=== PATIENT | male | born 1945 | race Caucasian/White ===

== ENCOUNTER → 2018-05-15 | Outpatient (CLI) | payer MEDICARE ==
[2018-05-15 11:25] LABS: HCT 42.4 % (39.0-53.0); HGB 14.6 gm/dL (13.0-17.5); MCH 33.3 pg (25.0-35.0); MCHC 34.4 g/dL (31.0-37.0); MCV 96.6 fL (80.0-100.0); Mean Platelet Volume 6.7; Platelet Count 223 k/uL (150-450); RBC 4.39 m/uL (4.30-5.90); RDW 12.8 % (11.5-15.5); WBC 7.8 k/uL (3.8-10.6)
[2018-05-15 11:38] LABS: ALT 37 U/L (21-72); AST 24 U/L (17-59); Alkaline Phosphatase 87 U/L (38-126); Anion Gap 9 mmol/L; Blood Urea Nitrogen 14 mg/dL (9-20); Calcium 9.4 mg/dL (8.4-10.2); Carbon Dioxide 26 mmol/L (22-30); Chloride 104 mmol/L (98-107); Cholesterol 107 mg/dL (<200); Glucose 191 mg/dL (74-99); HDL Cholesterol 35 mg/dL (40-60); LDL Cholesterol,Calculated 57 mg/dL (0-99); Potassium 4.7 mmol/L (3.5-5.1); Sodium 139 mmol/L (137-145); Total Bilirubin 0.7 mg/dL (0.2-1.3); Total Protein 6.6 g/dL (6.3-8.2); Triglycerides 76 mg/dL (<150)
[2018-05-15 11:55] LABS: T4, Free (Free Thyroxine) 0.97 ng/dL (0.78-2.19)
[2018-05-15 12:09] LABS: Prostate Specific Antigen 0.65 ng/mL (0.00-4.00)
[2018-05-15 17:01] LABS: Hemoglobin A1C 7.9 % (4.0-6.0)
== END | disposition home or self-care (01) ==
LOC: LABWHC1 10:24
PROVIDERS: ATTEND Family Medicine
DX: E11.9 Type 2 diabetes mellitus without complications (principal); I10 Essential (primary) hypertension
CPT/HCPCS: 36415; 80053; 80061; 83036; 84153; 84439; 84443; 85027

== ENCOUNTER → 2019-01-21 | Outpatient (CLI) | payer MEDICARE ==
--- NOTE | 2019-01-21 10:31 | XR ---
EXAMINATION TYPE: XR shoulder complete BILAT DATE OF EXAM: 01/21/2019 CLINICAL HISTORY: Bilateral shoulder pain TECHNIQUE: Three views of the bilateral shoulders were obtained. COMPARISON: None. FINDINGS: There is no acute fracture/dislocation evident in either shoulder. On the left there is mi ld acromio clavicular arthropathy with small marginal osteophytes. There is also mild glenohumeral ar thropathy with enthesophytes and minimal joint space narrowing. The left ribs appear grossly unremark able. No suspicious osseous lesion is seen on the left. On the right there is the appearance of a chr onic fracture deformity of the distal tip of the clavicle or clavicular reabsorption from arthropathy . There is moderate acromioclavicular arthropathy and moderate right glenohumeral arthropathy with ann bchondral cyst formation, marginal osteophytes, and joint space narrowing. No suspicious osseous lesi on. Visualized right ribs appear intact. IMPRESSION: 1. No acute fracture or dislocation in either shoulder. 2. Moderate right acromioclavicular and glenohumeral arthropathy and mild left acromioclavicular and glenohumeral arthropathy. There is also a mild chronic fracture deformity the distal right clavicular head or reabsorption from arthropathy.
--- NOTE | 2019-01-21 10:39 | XR ---
EXAMINATION TYPE: XR knee complete bilateral DATE OF EXAM: 01/21/2019 CLINICAL HISTORY: Bilateral knee pain TECHNIQUE: Three views of the bilateral knees were obtained. COMPARISON: None. FINDINGS: There is no acute fracture/dislocation evident in either knee. On the right there are mild tricompartmental osteophytes and well-corticated osteophyte of the superior patellar pole. Extensive atherosclerosis is seen of the popliteal artery and its branches. No suprapatellar joint effusion is evident. No suspicious osseous lesion. On the left there are also small tricompartmental osteophytes with very trace suprapatellar joint effusion suspected. Extensive atherosclerosis is also seen on th e left. No suspicious osseous lesion. IMPRESSION: 1. No acute fracture or dislocation in either knee. 2. Mild tricompartmental arthrosis bilaterally and extensive vascular calcifications. 3. Suspected trace left suprapatellar joint effusion.
== END | disposition home or self-care (01) ==
LOC: RADXRMAIN 09:46
PROVIDERS: ATTEND Family Medicine
DX: M19.011 Primary osteoarthritis, right shoulder (principal); M19.012 Primary osteoarthritis, left shoulder; M17.0 Bilateral primary osteoarthritis of knee

== ENCOUNTER → 2019-05-01 | Outpatient (CLI) | payer MEDICARE ==
--- NOTE | 2019-05-01 17:19 | MR ---
EXAMINATION TYPE: MR shoulder LT wo con DATE OF EXAM: 05/01/2019 COMPARISON: HISTORY: Lt shoulder pain x 2 yrs, injured while lifting TECHNIQUE: Multiplanar, multisequence imaging of the left shoulder is performed without contrast. FINDINGS: There is moderate sized shoulder joint effusion. Subscapularis tendon is intact. Biceps tendon is int act. There is fluid around the biceps tendon. There is large rotator cuff tear with retraction of the supraspinatus tendon. There is moderate spurr ing at the AC joint. There is severe subacromial joint space narrowing. Glenoid honey appear intact. There is no evidence of a fracture. The glenoid honey appear intact. IMPRESSION: Large rotator cuff tear with retraction of the supraspinatus tendon. 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 Subacromial impingement. Shoulder joint moderate-sized effusion.
== END | disposition home or self-care (01) ==
LOC: RADMRIMAIN 10:00
PROVIDERS: ATTEND Family Medicine
DX: M19.012 Primary osteoarthritis, left shoulder (principal); M75.122 Complete rotator cuff tear or rupture of left shoulder, not specified as traumatic

== ENCOUNTER → 2020-06-16 | Outpatient (CLI) | payer MEDICARE ==
[2020-06-16 11:20] LABS: Albumin 4.3 g/dL (3.80-4.90); Albumin/Globulin Ratio 2.15 (1.60-3.17); Anion Gap 8.2 mmol/L (4.00-12.00); Calcium 9.8 mg/dL (8.7-10.3); Carbon Dioxide 28.8 mmol/L (21.6-31.8); Non-African American GFR(CKD) 73.3 (60.0-200.0); Potassium 5.3 mmol/L (3.5-5.5); Total Bilirubin 0.5 mg/dL (0.3-1.2); Total Protein 6.3 g/dL (6.2-8.2)
== END | disposition home or self-care (01) ==
LOC: LABWHC1 07:04
PROVIDERS: ATTEND Internal Medicine Endocrinology, Diabetes & Metabolism
DX: E11.65 Type 2 diabetes mellitus with hyperglycemia (principal)
CPT/HCPCS: 36415; 80053; 84681

== ENCOUNTER → 2021-01-03 | Outpatient (CLI) | payer MEDICARE ==
[2021-01-04 01:38] LABS: Hemoglobin A1C 6.7 % (4.0-6.0)
[2021-01-04 04:00] LABS: African American GFR (CKD) 75.2 (60.0-200.0); Albumin 3.9 g/dL (3.80-4.90); Albumin/Globulin Ratio 2.17 (1.60-3.17); Anion Gap 10.1 mmol/L (4.00-12.00); BUN/Creat Ratio 27.27 Ratio (12.00-20.00); Carbon Dioxide 23.9 mmol/L (21.6-31.8); Chol/HDL Ratio 2.79; Globulin 1.8 g/dL (1.6-3.3); Non-African American GFR(CKD) 64.9 (60.0-200.0); Potassium 4.3 mmol/L (3.5-5.5); Total Bilirubin 0.5 mg/dL (0.2-1.2); Total Protein 5.7 g/dL (6.2-8.2)
[2021-01-04 12:57] LABS: Urine Creatinine 150.9 mg/dL
== END | disposition home or self-care (01) ==
LOC: LABWHC1 06:55
PROVIDERS: ATTEND Internal Medicine Endocrinology, Diabetes & Metabolism
DX: E11.65 Type 2 diabetes mellitus with hyperglycemia (principal)
CPT/HCPCS: 36415; 80053; 80061; 82043; 82570; 83036; 84443

== ENCOUNTER → 2021-04-16 | Outpatient (CLI) | payer MEDICARE ==
[2021-04-16 16:31] LABS: Hemoglobin A1C 6.4 % (4.0-6.0)
[2021-04-16 19:16] LABS: African American GFR (CKD) 84.4 (60.0-200.0); Albumin 4.1 g/dL (3.80-4.90); Albumin/Globulin Ratio 2.05 (1.60-3.17); Anion Gap 7.1 mmol/L (4.00-12.00); Calcium 9.3 mg/dL (8.7-10.3); Carbon Dioxide 24.9 mmol/L (21.6-31.8); Chol/HDL Ratio 2.3; LDL Cholesterol,Calculated 54.6 mg/dL (0.0-131.0); Non-African American GFR(CKD) 72.8 (60.0-200.0); Potassium 4.5 mmol/L (3.5-5.5); Total Bilirubin 0.6 mg/dL (0.3-1.2); Total Protein 6.1 g/dL (6.2-8.2); Uric Acid 5.6 mg/dL (3.7-8.7); VLDL Calculation 10.4 mg/dL (5.00-40.00)
[2021-04-16 21:14] LABS: Urine Creatinine 120.5 mg/dL
== END | disposition home or self-care (01) ==
LOC: LABWHC1 07:11
PROVIDERS: ATTEND Internal Medicine Endocrinology, Diabetes & Metabolism
DX: E11.65 Type 2 diabetes mellitus with hyperglycemia (principal); M10.9 Gout, unspecified
CPT/HCPCS: 36415; 80053; 80061; 82043; 82570; 83036; 84443; 84550

== ENCOUNTER → 2022-01-09 | Outpatient (CLI) | payer MEDICARE ==
[2022-01-09 10:52] LABS: ALT 33 U/L (10-49); AST 21 U/L (14-35); African American GFR (CKD) 95.1 (60.0-200.0); Albumin 4.2 g/dL (3.8-4.9); Albumin/Globulin Ratio 1.75 (1.60-3.17); Alkaline Phosphatase 79 U/L (41-126); BUN/Creat Ratio 25.78 Ratio (12.00-20.00); Blood Urea Nitrogen 23.2 mg/dL (9.0-27.0); Calcium 9.5 mg/dL (8.7-10.3); Carbon Dioxide 24.5 mmol/L (20.0-27.5); Chloride 105 mmol/L (96-109); Chol/HDL Ratio 2.22 Ratio; Globulin 2.4 g/dL (1.6-3.3); Glucose 162 mg/dL (70-110); LDL Cholesterol,Calculated 50.7 mg/dL (0.0-131.0); Non-African American GFR(CKD) 82.1 (60.0-200.0); Potassium 4.3 mmol/L (3.5-5.5); Sodium 139 mmol/L (135-145); Total Protein 6.6 g/dL (6.2-8.2)
== END | disposition home or self-care (01) ==
LOC: LABWHC1 07:00
PROVIDERS: ATTEND Internal Medicine Endocrinology, Diabetes & Metabolism
DX: E11.65 Type 2 diabetes mellitus with hyperglycemia (principal)
CPT/HCPCS: 36415; 80053; 80061; 82043; 82570; 83036; 84443

== ENCOUNTER 2022-02-21 10:56 | Emergency (ER) | payer MEDICARE ==
[2022-02-21 11:17] VITALS: BP 133/57; PULSE 68; RESP 18; TEMP 97.9
[2022-02-21] MEDS ORDERED: DIPH,PERTUS(ACELL)TETVAC-LF 0.5 ML VIAL IM ONE (11:23)
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
--- NOTE | 2022-02-21 13:08 | XR ---
EXAMINATION TYPE: XR elbow complete RT DATE OF EXAM: 02/21/2022 COMPARISON: NONE INDICATION: Fall, pain and swelling TECHNIQUE: 3 views off the right elbow FINDINGS: Linear lucency superimposed on the sublime tubercle of the ulna. This could be related to degenerativ e changes however a subtle nondisplaced fracture at that location cannot be excluded. Osteophytosis of the radial head, olecranon and coronoid process with medial and lateral humeral epic ondyle enthesophytes. Elongated bone fragment measuring 7 mm is seen along the medial humeral condyle, possibly representin g sequela of avulsion fracture or related to degenerative changes. No definite acute fracture line identified otherwise. No sizable joint effusion. IMPRESSION: As above.
== END 2022-02-21 13:33 | disposition home or self-care (01) ==
LOC: EC 10:56
DX: S51.011A Laceration without foreign body of right elbow, initial encounter (principal); E11.9 Type 2 diabetes mellitus without complications; I10 Essential (primary) hypertension; E78.5 Hyperlipidemia, unspecified; Z79.899 Other long term (current) drug therapy; Z79.84 Long term (current) use of oral hypoglycemic drugs; V87.8XXA Person injured in other specified noncollision transport accidents involving motor vehicle (traffic), initial encounter
CPT/HCPCS: 90471; 90715; 99283

== ENCOUNTER 2022-06-07 21:38 | Emergency (ER) | payer MEDICARE ==
--- NOTE | 2022-06-07 23:28 | CT ---
EXAMINATION TYPE: CT brain evangelina wiley con DATE OF EXAM: 06/07/2022 COMPARISON: None HISTORY: fall CT DLP: 1302.8 mGycm Automated exposure control for dose reduction was used. There is cerebral mild cortical atrophy. There is no mass effect or midline shift. No sign of intracr anial hemorrhage. The calvarium is intact. The skull base is intact. There is normal aeration of the mastoid sinuses. The cervical vertebra have normal alignment. There is mild disc space narrowing at C5-6 and C6-7 with spurring of the endplates. The posterior elements are intact. No compression fracture. Facet joints appear intact. Prevertebral soft tissues are intact. IMPRESSION: Spondylotic changes in the lower cervical spine. No fracture. Mild cerebral atrophy. No acute intracranial abnormality.
--- NOTE | 2022-06-07 23:35 | CT ---
EXAMINATION TYPE: CT facial bones wo con DATE OF EXAM: 06/07/2022 COMPARISON: None HISTORY: fall CT DLP: 1302.8 mGycm Automated exposure control for dose reduction was used. Images obtained from the bottom of the mandible to the vertex of the brain with no contrast. The mandibular ring is intact. The temporomandibular joints are intact. Zygomatic arches appear nino l. Nasal bone is intact There is normal aeration of the paranasal sinuses. Maxilla is intact. No evidence of orbital blowout fracture. Orbital margins are intact. No retro-orbital mass. No sign of a foreign body. IMPRESSION: Negative CT scan of the facial bones. No fracture seen.
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
[2022-06-08 00:18] VITALS: BP 160/70; PULSE 62; RESP 18; TEMP 98
== END 2022-06-08 00:17 | disposition home or self-care (01) ==
LOC: EC 21:38
DX: T14.8XXA Other injury of unspecified body region, initial encounter (principal); E11.9 Type 2 diabetes mellitus without complications; E78.5 Hyperlipidemia, unspecified; I10 Essential (primary) hypertension; I25.2 Old myocardial infarction; Z79.899 Other long term (current) drug therapy; W01.0XXA Fall on same level from slipping, tripping and stumbling without subsequent striking against object, initial encounter
CPT/HCPCS: 70450; 70486; 72125; 99284

== ENCOUNTER → 2023-01-28 | Outpatient (CLI) | payer MEDICARE ==
[2023-01-28 11:14] LABS: BUN/Creat Ratio 23.67 Ratio; Blood Urea Nitrogen 21.3 mg/dL; Chloride 104 mmol/L; Chol/HDL Ratio 2.55 Ratio; Glucose 183 mg/dL; LDL Cholesterol,Calculated 75.3 mg/dL; Potassium 4.3 mmol/L; Sodium 140 mmol/L; VLDL Calculation 11.66 mg/dL
[2023-01-28 11:15] LABS: ALT 40 U/L; AST 26 U/L; Albumin 4.3 d/dL; Albumin/Globulin Ratio 2.05 Ratio; Alkaline Phosphatase 81 U/L; Calcium 9.9 mg/dL; Carbon Dioxide 24.9 mmol/L; Globulin 2.1 d/dL; Total Bilirubin 0.6 mg/dL; Total Protein 6.4 d/dL
== END | disposition home or self-care (01) ==
LOC: LABWHC1 06:40
PROVIDERS: ATTEND Internal Medicine Endocrinology, Diabetes & Metabolism
DX: E11.65 Type 2 diabetes mellitus with hyperglycemia (principal)
CPT/HCPCS: 36415; 80053; 80061; 82043; 82570; 83036; 84443

== ENCOUNTER 2024-05-04 12:52 | Inpatient (IN) | payer MEDICARE ==
--- NOTE | 2024-05-04 13:00 | ED ---
Fall HPI - General Source: patient, family, RN notes reviewed Mode of arrival: wheelchair Limitations: no limitations <Vanessa Martinez - Last Filed: 05/04/24 12:59> - General Source: patient, family, RN notes reviewed Limitations: no limitations <Klaus Cartagena - Last Filed: 05/04/24 16:58> - General Stated Complaint: Fall on thinner-facial injury Time Seen by Provider: 05/04/24 12:59 - History of Present Illness Initial Comments: Quick note: 78-year-old male presented to ER with a chief complaint of fall. Patient states he was on a ladder approximately 2 feet high when he lost his balance falling landing on his right side. He does report pain in his head denies loss of consciousness. Does take Xarelto. He does report a laceration to left eyebrow. Reports pain to right ribs, right elbow and right valentine. (Vanessa Martinez) Patient is a 78-year-old male presenting to the emergency department after a fall. Patient was on a ladder about 2 feet high. Patient did land on his right side. Patient believes the ladder struck his head and caused a laceration to the left eyebrow. No neck or back pain. No dyspnea. Patient has discomfort right ribs. Patient denies abdominal pain. Patient did sustain a skin tear to right elbow and right leg. Tetanus immunization is up-to-date. (Klaus Cartagena) - Related Data Home Medications Medication Instructions Recorded Confirmed Atorvastatin Calcium [Lipitor] 80 mg PO HS 02/21/22 05/04/24 Indomethacin [Indocin] 50 mg PO TID PRN 02/21/22 05/04/24 Losartan Potassium 50 mg PO DAILY 02/21/22 05/04/24 Niacin [Niacin ER] 500 mg PO DAILY 02/21/22 05/04/24 Tamsulosin HCl [Flomax] 0.4 mg PO DAILY 02/21/22 05/04/24 allopurinoL [Zyloprim] 100 mg PO BID 02/21/22 05/04/24 sitaGLIPtin PHOS/metFORMIN HCL 1 tab PO DAILY 02/21/22 05/04/24 [Janumet 50-1,000 mg Tablet] Amiodarone [Cordarone] 200 mg PO DAILY 05/04/24 05/04/24 Aspirin EC [Ecotrin Low Dose] 81 mg PO HS 05/04/24 05/04/24 HYDROcodone/APAP 5-325MG [[place] 1 tab PO QID PRN 05/04/24 05/04/24 5-325] Metoprolol Tartrate [Lopressor] 50 mg PO BID 05/04/24 05/04/24 Rivaroxaban [Xarelto] 20 mg PO DAILY 05/04/24 05/04/24 Allergies Allergy/AdvReac Type Severity Reaction Status Date / Time No Known Allergies Allergy Verified 05/04/24 16:27 Review of Systems ROS Other: All systems not noted in ROS Statement are negative. <Vanesas Martinez - Last Filed: 05/04/24 12:59> ROS Other: All systems not noted in ROS Statement are negative. Constitutional: Denies: fever Eyes: Denies: eye pain ENT: Denies: ear pain Respiratory: Denies: cough, dyspnea Cardiovascular: Reports: as per HPI Musculoskeletal: Denies: back pain <Klaus Cartagena - Last Filed: 05/04/24 16:58> ROS Statement: Those systems with pertinent positive or pertinent negative responses have been documented in the HPI. Past Medical History Past Medical History: Diabetes Mellitus, Hyperlipidemia, Hypertension, Myocardial Infarction (OR) History of Any Multi-Drug Resistant Organisms: None Reported Past Surgical History: Heart Catheterization With Stent Past Psychological History: No Psychological Hx Reported Smoking Status: Never smoker Past Alcohol Use History: None Reported Past Drug Use History: None Reported <Vanessa Martinez - Last Filed: 05/04/24 12:59> General Exam <Vanessa Martinez - Last Filed: 05/04/24 12:59> Limitations: no limitations General appearance: alert, in no apparent distress Head exam: Present: other (Left eyebrow laceration) Eye exam: Present: normal appearance, PERRL, EOMI Neck exam: Present: normal inspection. Absent: tenderness Respiratory exam: Present: normal lung sounds bilaterally, chest wall tenderness (Right lower rib region). Absent: decreased breath sounds Cardiovascular Exam: Present: regular rate, normal rhythm, normal heart sounds GI/Abdominal exam: Present: soft, tenderness (Mild right upper abdomen). Absent: distended Extremities exam: Present: normal inspection, full ROM. Absent: tenderness Neurological exam: Present: alert, oriented X3, CN II-XII intact. Absent: motor sensory deficit Expanded Neurological exam: Present: protecting the airway Patient oriented to: Present: person, place, time Speech: Present: fluid speech Cranial nerves: EOM's Intact: Normal Sensory exam: Upper Extremity Light Touch: Normal, Lower Extremity Light Touch: Normal Motor strength exam: RUE: 5, LUE: 5, RLE: 5, LLE: 5 Eye Response: (4) open spontaneously Motor Response: (6) obeys commands Verbal Response: (5) oriented Psychiatric exam: Present: normal affect, normal mood Skin exam: Present: other (Eyebrow laceration. Skin tears right elbow and right anterior tibial region) <Klaus Cartagena - Last Filed: 05/04/24 16:58> - General Exam Comments Initial Comments: Visual Physical Exam Vital signs reviewed General: Well-appearing, nontoxic, no acute distress. Resting tremor Head: Normocephalic, atraumatic Eyes: PERRLA, EOMI, laceration to left eyebrow ENT: Airway patent Chest: Nonlabored breathing Skin: No visual rash, normal skin tone Neuro: Alert and oriented 3 Musculoskeletal: No gross abnormalities (Vanessa Martinez) Course Vital Signs 05/04/24 05/04/24 05/04/24 12:58 13:10 14:13 Temperature 97.6 F Pulse Rate 68 63 54 L Pulse Rate [ Supine] Respiratory 18 18 16 Rate Blood Pressure 92/55 116/60 90/46 Blood Pressure [Left Arm] O2 Sat by Pulse 98 93 L 94 L Oximetry 05/04/24 05/04/24 15:05 16:14 Temperature Pulse Rate 52 L Pulse Rate [ 49 L Supine] Respiratory 16 18 Rate Blood Pressure 149/59 Blood Pressure 109/50 [Left Arm] O2 Sat by Pulse 94 L 100 Oximetry Procedures - Laceration Laceration #1 Consent Obtained: verbal consent Indication: laceration Site: face Size (cm): 3 Description: linear Depth: simple, single layer Pre-repair: irrigated extensively Type of Sutures: other (Closed with tissue adhesive) Complications: bleeding Patient Tolerated Procedure: well <Klaus Cartagena - Last Filed: 05/04/24 16:58> Medical Decision Making <Vanessa Martinez - Last Filed: 05/04/24 12:59> - Lab Data Result diagrams: 05/04/24 13:40 05/04/24 13:40 <CartagenaKlaus - Last Filed: 05/04/24 16:58> - Medical Decision Making I performed the quick note portion of this chart. Electronically signed by Vanessa Martinez PA-C (Vanessa Martinez) EKG interpreted by myself shows sinus rhythm with a rate of 60. VA 182. QRS 101. QT 443. QTc 444. Normal axis. Q wave in V1. Q wave in lead III. No acute ST change Was pt. sent in by a medical professional or institution (RAGINI Martin, DIRECTOR [employer], urgent care, hospital, or halfway...) When possible be specific @ -No Did you speak to anyone other than the patient for history (EMS, parent, family, police, friend...)? What history was obtained from this source @ -Family is present and helps provide history of patient and Xarelto Did you review nursing and triage notes (agree or disagree)? Why? @ -I reviewed and agree with nursing and triage notes Were old charts reviewed (outside hosp., previous admission, EMS record, old EKG, old radiological studies, urgent care reports/EKG's, halfway records)? Report findings @ -No old charts were reviewed Differential Diagnosis (chest pain, altered mental status, abdominal pain women, abdominal pain men, vaginal bleeding, weakness, fever, dyspnea, syncope, headache, dizziness, GI bleed, back pain, seizure, CVA, palpatations, mental health, musculoskeletal)? @ -Differential Musculoskeletal Muscular strain, contusion, ligament sprain, fracture, arthritis, septic arthritis, bursitis, cellulitis, muscle spasm, nerve compression, DVT, arterial occlusion, herpes zoster, electrolyte abnormality, tumor.... This is not meant to be in all inclusive list EKG interpreted by me (3pts min.). @ -As above X-rays interpreted by me (1pt min.). @ -Chest x-ray with questionable rib fracture. Pelvis x-ray shows no acute process CT interpreted by me (1pt min.). @ -CT scan brain and cervical spine without acute abnormality. CTA of chest with rib fractures on the right, possible hemothorax U/S interpreted by me (1pt. min.). @ -None done What testing was considered but not performed or refused? (CT, X-rays, U/S, labs)? Why? @ -None What meds were considered but not given or refused? Why? @ -None Did you discuss the management of the patient with other professionals (professionals i.e. , PA, [employer], lab, RT, psych nurse, delinquency prevention social worker, head waiter, teacher, [place] [employer] police officer, case resolution specialist)? Give summary @ -Case discussed with trauma surgeon Dr. Bansal who will admit covering trauma call Was smoking cessation discussed for >3mins.? @ -No Was critical care preformed (if so, how long)? @ -32 minutes critical care time Were there social determinants of health that impacted care today? How? (Homelessness, low income, unemployed, alcoholism, drug addiction, transportation, low edu. Level, literacy, decrease access to med. care, [facility], rehab)? @ -No Was there de-escalation of care discussed even if they declined (Discuss DNR or withdrawal of care, Hospice)? DNR status @ -No What co-morbidities impacted this encounter? (DM, HTN, Smoking, COPD, CAD, Cancer, CVA, ARF, Chemo, Hep., AIDS, mental health diagnosis, sleep apnea, morbid obesity)? @ -None Was patient admitted / discharged? Hospital course, mention meds given and route, prescriptions, significant lab abnormalities, going to OR and other pertinent info. @ -Patient presents with fall with right-sided rib pain. Patient has multiple rib fractures. Patient will be admitted, admission orders written. Undiagnosed new problem with uncertain prognosis? @ -No Drug Therapy requiring intensive monitoring for toxicity (Heparin, Nitro, Insulin, Cardizem)? @ -No Were any procedures done? @ -No Diagnosis/symptom? @ -Fall, right-sided rib fractures with hemothorax, eyebrow laceration Acute, or Chronic, or Acute on Chronic? @ -Acute, acute, acute Uncomplicated (without systemic symptoms) or Complicated (systemic symptoms)? @ -Default Side effects of treatment? @ -No Exacerbation, Progression, or Severe Exacerbation? @ -No Poses a threat to life or bodily function? How? (Chest pain, USA, OR, pneumonia, PE, COPD, DKA, ARF, appy, cholecystitis, CVA, Diverticulitis, Homicidal, Suicidal, threat to staff... and all critical care pts) @ -Threat to pulmonary function (Klaus Cartagena) - Lab Data Lab Results 05/04/24 05/04/24 05/04/24 Range/Units 13:35 13:40 13:40 WBC 7.0 (3.8-10.6) k/uL RBC 3.64 L (4.30-5.90) m/uL Hgb 12.1 L (13.0-17.5) gm/dL Hct 37.8 L (39.0-53.0) % MCV 103.9 H (80.0-100.0) fL MCH 33.3 (25.0-35.0) pg MCHC 32.0 (31.0-37.0) g/dL RDW 12.6 (11.5-15.5) % Plt Count 248 (150-450) k/uL MPV 7.5 Neutrophils % 72 % Lymphocytes % 17 % Monocytes % 7 % Eosinophils % 2 % Basophils % 1 % Neutrophils # 5.1 (1.3-7.7) k/uL Lymphocytes # 1.2 (1.0-4.8) k/uL Monocytes # 0.5 (0-1.0) k/uL Eosinophils # 0.2 (0-0.7) k/uL Basophils # 0.0 (0-0.2) k/uL Macrocytosis Slight PT 15.1 H (10.0-12.5) sec INR 1.5 H (<1.2) APTT 28.7 (22.0-30.0) sec Sodium (137-145) mmol/L Potassium (3.5-5.1) mmol/L Chloride (98-107) mmol/L Carbon Dioxide (22-30) mmol/L Anion Gap mmol/L BUN (9-20) mg/dL Creatinine (0.66-1.25) mg/dL Est GFR (CKD-EPI)AfAm (>60 ml/min/1.73 sqM) Est GFR (CKD-EPI)NonAf (>60 ml/min/1.73 sqM) Glucose (74-99) mg/dL Calcium (8.4-10.2) mg/dL Total Bilirubin (0.2-1.3) mg/dL AST (17-59) U/L ALT (4-49) U/L Alkaline Phosphatase (38-126) U/L Total Protein (6.3-8.2) g/dL Albumin (3.5-5.0) g/dL Blood Type O Positive Blood Type Confirm Blood Type Recheck No Previous Record Bld Type Recheck Status CABO Indicated Antibody Screen NEGATIVE Spec Expiration Date 05/07/2024 - 233405/04/24 05/04/24 Range/Units 13:40 13:43 WBC (3.8-10.6) k/uL RBC (4.30-5.90) m/uL Hgb (13.0-17.5) gm/dL Hct (39.0-53.0) % MCV (80.0-100.0) fL MCH (25.0-35.0) pg MCHC (31.0-37.0) g/dL RDW (11.5-15.5) % Plt Count (150-450) k/uL MPV Neutrophils % % Lymphocytes % % Monocytes % % Eosinophils % % Basophils % % Neutrophils # (1.3-7.7) k/uL Lymphocytes # (1.0-4.8) k/uL Monocytes # (0-1.0) k/uL Eosinophils # (0-0.7) k/uL Basophils # (0-0.2) k/uL Macrocytosis PT (10.0-12.5) sec INR (<1.2) APTT (22.0-30.0) sec Sodium 135 L (137-145) mmol/L Potassium 4.5 (3.5-5.1) mmol/L Chloride 107 (98-107) mmol/L Carbon Dioxide 21 L (22-30) mmol/L Anion Gap 7 mmol/L BUN 27 H (9-20) mg/dL Creatinine 1.31 H (0.66-1.25) mg/dL Est GFR (CKD-EPI)AfAm 60 (>60 ml/min/1.73 sqM) Est GFR (CKD-EPI)NonAf 52 (>60 ml/min/1.73 sqM) Glucose 234 H (74-99) mg/dL Calcium 9.5 (8.4-10.2) mg/dL Total Bilirubin 0.7 (0.2-1.3) mg/dL AST 171 H (17-59) U/L ALT 165 H (4-49) U/L Alkaline Phosphatase 130 H (38-126) U/L Total Protein 6.1 L (6.3-8.2) g/dL Albumin 3.7 (3.5-5.0) g/dL Blood Type Blood Type Confirm O Positive Blood Type Recheck Bld Type Recheck Status Antibody Screen Spec Expiration Date Disposition <Vanessa Martinez - Last Filed: 05/04/24 12:59> Is patient prescribed a controlled substance at d/c from ED?: No Time of Disposition: 16:33 <Klaus Cartagena - Last Filed: 05/04/24 16:58> Clinical Impression: Multiple rib fractures, Hemothorax, Eyebrow laceration Disposition: ADMITTED IP TO THIS HOSP Referrals: Enrique Olsen DO [Primary Care Provider] - 1-2 days
[2024-05-04] MEDS: HYDROmorphone 0.5 MG/0.5 ML SYRINGE IVP STA (13:41)
[2024-05-04] MEDS: TOPICAL SKIN ADHESIVE 1 EACH AMP TOPICAL ONE (13:41)
[2024-05-04 13:53] LABS: Basophils % (A) 1 %; Eosinophils # (A) 0.2 k/uL (0-0.7); Eosinophils % (A) 2 %; HCT 37.8 % (39.0-53.0); HGB 12.1 gm/dL (13.0-17.5); Lymphocytes # (A) 1.2 k/uL (1.0-4.8); Lymphocytes % (A) 17 %; MCH 33.3 pg (25.0-35.0); MCV 103.9 fL (80.0-100.0); Macrocytosis Slight; Mean Platelet Volume 7.5; Monocytes # (A) 0.5 k/uL (0-1.0); Monocytes % (A) 7 %; Neutrophils # (A) 5.1 k/uL (1.3-7.7); Neutrophils % (A) 72 %; Platelet Count 248 k/uL (150-450); RBC 3.64 m/uL (4.30-5.90); RDW 12.6 % (11.5-15.5)
--- NOTE | 2024-05-04 14:02 | CT ---
EXAMINATION TYPE: CT brain cspine wo con CT DLP: 1518 mGycm, Automated exposure control for dose reduction was used. DATE OF EXAM: 05/04/2024 1:49 PM COMPARISON: None. CLINICAL INDICATION: Male, 78 years old with history of fall with head injury on thinners; fall TECHNIQUE: Brain: Multiple axial CT images of the brain were obtained without IV contrast. Cspine: Axial CT images from the skull base to the inferior aspect of T2 we obtained without intraven ous contrast. Coronal and sagittal reformatted images were also reviewed. . FINDINGS: Brain: Extra-axial spaces: No abnormal extra-axial fluid collections. Ventricular system: Within normal limits Cerebral parenchyma: No acute intraparenchymal hemorrhage or mass effect. The sarah-white junction is well differentiated. Cerebellum: Unremarkable. Mass effect: No evidence of midline shift. Intracranial vasculature: Atherosclerotic calcifications of the intracranial vessels. Soft tissues: Normal. Calvarium/osseous structures: No depressed skull fracture. Paranasal sinuses and mastoid air cells: Clear. Visualized orbits: Orbital contents are intact. Cervical spine: Fracture: None. Osseous structures: Multilevel degenerative disc disease changes with endplate spurring and disc oste ophyte complex's. Vertebral alignment: Within normal limits. Spinal canal/Neural Foramina: No evidence of significant spinal canal narrowing. No evidence for sign ificant neural foraminal stenosis. Neck soft tissues: Prevertebral soft tissues are within normal limits. Other: The airway is patent. The lung apices are clear. IMPRESSION: 1. No acute intracranial process. 2. No evidence of cervical spine fracture. 3. Moderate multilevel degenerative disc disease.
--- NOTE | 2024-05-04 14:03 | XR ---
EXAMINATION TYPE: XR chest 1V portable DATE OF EXAM: 05/04/2024 1:31 PM CLINICAL INDICATION: Male, 78 years old with history of trauma; COMPARISON: None TECHNIQUE: XR chest 1V portable Frontal view of the chest. FINDINGS: Lungs/Pleura: There is no evidence of pleural effusion, focal consolidation, or pneumothorax. Pulmonary vascularity: Unremarkable. Heart/mediastinum: Cardiomediastinal silhouette is unremarkable. Musculoskeletal: No acute osseous pathology. Other findings: None IMPRESSION: Low lung volumes with a generalized hazy appearance which could represent atelectasis versus pulmonar y edema correlate with serum BNP.
--- NOTE | 2024-05-04 14:04 | XR ---
EXAMINATION TYPE: XR pelvis AP view DATE OF EXAM: 05/04/2024 1:31 PM CLINICAL INDICATION: Male, 78 years old with history of Trauma; COMPARISON: None TECHNIQUE: XR pelvis AP view, examined in a single projection. FINDINGS: There is no evidence of fracture or dislocation. There is no soft tissue abnormality. No a bnormal calcifications are present. The spine appears intact. The hips appear intact. Osteophyte form ation of the superior acetabulum bilaterally with mild joint space narrowing. IMPRESSION: No acute osseous pathology.
[2024-05-04 14:12] LABS: INR 1.5 (<1.2); Partial Thromboplastin Time 28.7 sec (22.0-30.0); Prothrombin Time 15.1 sec (10.0-12.5)
[2024-05-04 15:23] LABS: ALT 165 U/L (4-49); AST 171 U/L (17-59); African American GFR (CKD) 60 (>60 ml/min/1.73 sqM); Albumin 3.7 g/dL (3.5-5.0); Alkaline Phosphatase 130 U/L (38-126); Anion Gap 7 mmol/L; Blood Urea Nitrogen 27 mg/dL (9-20); Calcium 9.5 mg/dL (8.4-10.2); Carbon Dioxide 21 mmol/L (22-30); Chloride 107 mmol/L (98-107); Glucose 234 mg/dL (74-99); Non-African American GFR(CKD) 52 (>60 ml/min/1.73 sqM); Potassium 4.5 mmol/L (3.5-5.1); Sodium 135 mmol/L (137-145); Total Bilirubin 0.7 mg/dL (0.2-1.3); Total Protein 6.1 g/dL (6.3-8.2)
--- NOTE | 2024-05-04 16:28 | CT ---
EXAMINATION TYPE: CT ChestAbdPelvis w con CT DLP: 1102.2 mGycm, Automated exposure control for dose reduction was used. DATE OF EXAM: 05/04/2024 4:11 PM COMPARISON: None. CLINICAL INDICATION: Male, 78 years old with history of trauma; [facility], fell off 2 foot ladder chest elle n Technique: CT ChestAbdPelvis w con; Multiple axial images were obtained. Two-dimensional coronal and sagittal reconstructions were obtained. Contrast used:100 mL of Isovue 300 with IV Contrast, Oral contrast used: without Oral Contrast Findings: CHEST: LUNGS/ PLEURA: High density right pleural effusion likely representing blood is in setting of rib fra ctures.e AIRWAY: Patent and unremarkable. HEART: Cardiomegaly is demonstrated.Atherosclerosis of the arterial vasculature. Moderate aortic valv e calcifications are present. MEDIASTINUM: No gross evidence of adenopathy. VASCULATURE: No aortic aneurysm. MUSCULOSKELETAL: Multiple right-sided rib fractures including right rib 3, 4, 5, 6, 7 with cortical b uckling of rib 8 9 also present. SOFT TISSUES/LYMPH NODES: Unremarkable. LOWER NECK: No significant findings. ABDOMEN: ABDOMEN LIVER: Unremarkable GALLBLADDER AND BILE DUCTS: Unremarkable. PANCREAS: Lesions are seen in the pancreatic parenchyma including the pancreatic uncinate process alex suring 15 mm and the pancreatic head measuring 16 mm. SPLEEN: Unremarkable. ADRENAL GLANDS: Unremarkable. KIDNEYS AND URETERS: No evidence of hydronephrosis or renal calculus. The ureters are unremarkable. Left simple appearing renal cysts. PELVIS BLADDER: Unremarkable REPRODUCTIVE: Unremarkable. ABDOMEN & PELVIS STOMACH AND BOWEL: No evidence of bowel obstruction. PERITONEUM/RETROPERITONEUM: No evidence of pneumoperitoneum or free fluid. VASCULATURE: No evidence of aortic aneurysm. MUSCULOSKELETAL: No Evidence for spine fracture. The bony pelvis appears intact. LYMPH NODES: No gross evidence for lymphadenopathy. SOFT TISSUE/ABDOMINAL WALL: Unremarkable IMPRESSION: 1. Acute right rib fractures with mild displacement of ribs 3 through 9 with suspected hemothorax ve rsus effusion on the right. 2. The spine appears intact without fracture. 3. Indeterminate pancreatic head and tail process lesions possibly representing cysts. Further evalu ation pancreatic MRI MRCP with IV contrast recommended. 4. Cardiomegaly with moderate to severe coronary artery atherosclerosis. 5. Moderate aortic valve calcifications.
[2024-05-04] MEDS ORDERED: MORPHINE SULFATE 2 MG/ML SYRINGE IVP PRN (16:58)
[2024-05-04] MEDS ORDERED: NALOXONE 0.4 MG/ML 1 ML VIAL IV PRN (16:58)
[2024-05-04] MEDS ORDERED: ONDANSETRON 4 MG/2 ML VIAL IVP PRN (16:58)
[2024-05-04] MEDS: HYDROcodone/APAP 5-325MG 1 EACH TAB PO PRN (18:22)
[2024-05-04] MEDS: LIDOCAINE 4% PATCH TOPICAL SCH (20:50)
[2024-05-04] MEDS: allopurinoL 100 MG TAB PO SCH (20:51)
[2024-05-04] MEDS: ATORVASTATIN 80 MG TAB PO SCH (20:51)
[2024-05-04] MEDS: METOPROLOL TARTRATE 50 MG TAB PO SCH (20:55)
[2024-05-04] MEDS: methocarbamoL 500 MG TAB PO SCH (22:08)
--- NOTE | 2024-05-05 03:58 | P.CNPUL ---
History of Present Illness Consult date: 05/05/24 Requesting physician: Klaus Cartagena Reason for consult: other (Traumatic fall, multiple displaced rib fractures) Chief complaint: Fall from ladder History of present illness: Patient is a 78-year-old white male with past medical history significant for diabetes mellitus, hyperlipidemia, hypertension, CAD with previous PCI/stenting, and atrial fibrillation anticoagulated on Xarelto. Patient presented to the ED yesterday after falling approximately 2 feet from ladder. He was changing a light fixture. Does report head trauma. There is a laceration to left eyebrow. Does take Xarelto on outpatient basis. CT of the brain and C-spine does not show any intracranial hemorrhage or mass effect. No C-spine fracture or subluxation. Also, reports some right-sided chest pain. CT of chest, abdomen, pelvis demonstrated acute right-sided rib fractures with mild displacement of ribs 3 through 9, and small right-sided effusion, possible hemothorax. No appreciable pneumothoraces. The fluid collection is small, doubt the patient would benefit from thoracotomy tube. Cardiothoracic consult was also placed. Patient is currently in the emergency department, room 2. He is on room air. SpO2 is 93%. No signs of respiratory distress. We will need to get him an incentive spirometer. Continues to have right-sided rib pain. No crepitus or subcutaneous emphysema. There is a lidocaine patch on. Patient also receiving as needed [place]'s. Reports that his pain is fairly well-managed at this time. Review of Systems Constitutional: Denies chills, Denies fever, Denies weight gain, Denies weight loss Eyes: denies blurred vision, denies decreased vision, denies diplopia, denies photophobia, denies loss of vision Ears, nose, mouth and throat: Denies epistaxis, Denies headache, Denies nose pain, Denies sinus pain Cardiovascular: Reports chest pain, Denies leg edema, Denies lightheadedness, Denies orthopnea, Denies palpitations, Denies paroxysmal nocturnal dyspnea, Denies syncope Respiratory: Reports pain on inspiration, Denies cough, Denies dyspnea, Denies hemoptysis Gastrointestinal: Denies abdominal pain Genitourinary: Denies dysuria, Denies hematuria, Denies urinary frequency Musculoskeletal: Denies leg numbness/tingling, Denies limitation of motion, Denies low back pain, Denies neck pain Musculoskeletal: right: elbow pain, hip pain, absent: ankle pain, ankle stiffness, ankle swelling, elbow stiffness, elbow swelling, hip stiffness, hip swelling, knee pain, knee stiffness, knee swelling, shoulder pain, shoulder stiffness, shoulder swelling, wrist pain, wrist stiffness, wrist swelling Integumentary: Denies rash Neurological: Reports head injury, Denies change in mentation, Denies change in speech, Denies confusion, Denies double vision, Denies gait dysfunction, Denies headaches, Denies lack of coordination, Denies memory loss, Denies seizures, Denies syncope, Denies weakness, Denies visual changes Psychiatric: Denies anxiety, Denies depression Past Medical History Past Medical History: Diabetes Mellitus, Hyperlipidemia, Hypertension, Myocardial Infarction ([place]) History of Any Multi-Drug Resistant Organisms: None Reported Past Surgical History: Heart Catheterization With Stent Past Psychological History: No Psychological Hx Reported Smoking Status: Never smoker Past Alcohol Use History: None Reported Past Drug Use History: None Reported Medications and Allergies Home Medications Medication Instructions Recorded Confirmed Type Atorvastatin Calcium [Lipitor] 80 mg PO HS 02/21/22 05/04/24 History Indomethacin [Indocin] 50 mg PO TID PRN 02/21/22 05/04/24 History Losartan Potassium 50 mg PO DAILY 02/21/22 05/04/24 History Niacin [Niacin ER] 500 mg PO DAILY 02/21/22 05/04/24 History Tamsulosin HCl [Flomax] 0.4 mg PO DAILY 02/21/22 05/04/24 History allopurinoL [Zyloprim] 100 mg PO BID 02/21/22 05/04/24 History sitaGLIPtin PHOS/metFORMIN HCL 1 tab PO DAILY 02/21/22 05/04/24 History [Janumet 50-1,000 mg Tablet] Amiodarone [Cordarone] 200 mg PO DAILY 05/04/24 05/04/24 History Aspirin EC [Ecotrin Low Dose] 81 mg PO HS 05/04/24 05/04/24 History HYDROcodone/APAP 5-325MG [[place] 1 tab PO QID PRN 05/04/24 05/04/24 History 5-325] Metoprolol Tartrate [Lopressor] 50 mg PO BID 05/04/24 05/04/24 History Rivaroxaban [Xarelto] 20 mg PO DAILY 05/04/24 05/04/24 History Allergies Allergy/AdvReac Type Severity Reaction Status Date / Time No Known Allergies Allergy Verified 05/04/24 16:27 Physical Exam Vitals: Vital Signs Temp Pulse Pulse Resp BP BP Pulse Ox 05/05/24 00:00 56 L 18 140/66 93 L 05/04/24 22:11 55 L 17 132/64 94 L 05/04/24 19:17 53 L 17 148/65 05/04/24 18:38 58 L 18 169/75 97 05/04/24 18:30 96 05/04/24 17:30 58 L 16 158/68 99 05/04/24 16:14 52 L 18 149/59 100 05/04/24 15:05 49 L 16 109/50 94 L 05/04/24 14:13 54 L 16 90/46 94 L 05/04/24 13:10 63 18 116/60 93 L 05/04/24 12:58 97.6 F 68 18 92/55 98 Intake and Output 05/04/24 05/04/24 05/05/24 14:59 22:59 06:59 Other: Weight 75.75 kg GENERAL EXAM: Alert, 78-year-old white male, appearing stated age, comfortable in no apparent distress. HEAD: Normocephalic and left frontal eyebrow trauma/ecchymosis/laceration/periorbital swelling EYES: Normal reaction of pupils, equal size. NOSE: Clear with pink turbinates. THROAT: No erythema or exudates. NECK: No masses, no JVD. CHEST: No chest wall deformity. Grimacing with palpation of right anterior thorax. No gross deformities or crepitus. No subcutaneous emphysema. LUNGS: Equal air entry with no crackles, wheeze, rhonchi or dullness. On room air. No conversational dyspnea or accessory muscle use.. CVS: S1 and S2 normal with no audible murmur, regular rhythm. No extra heart sounds ABDOMEN: No hepatosplenomegaly, active bowel sounds, no guarding or rigidity. SPINE: No scoliosis or deformity SKIN: Right valentine abrasion. Right elbow skin tear. CENTRAL NERVOUS SYSTEM: No focal deficits, tone is normal in all 4 extremities. EXTREMITIES: There is no peripheral edema, clubbing, or cyanosis. Peripheral pulses are intact. Results - Laboratory Findings CBC and BMP: 05/04/24 13:40 05/04/24 13:40 PT/INR, D-dimer PT 15.1 sec (10.0-12.5) H 05/04/24 13:40 INR 1.5 (<1.2) H 05/04/24 13:40 Abnormal lab findings: Abnormal Labs 05/04/24 05/04/24 05/04/24 13:40 13:40 13:40 RBC 3.64 L Hgb 12.1 L Hct 37.8 L MCV 103.9 H PT 15.1 H INR 1.5 H Sodium 135 L Carbon Dioxide 21 L BUN 27 H Creatinine 1.31 H Glucose 234 H AST 171 H ALT 165 H Alkaline Phosphatase 130 H Total Protein 6.1 L - Diagnostic Findings Chest x-ray: image reviewed CT scan - chest: image reviewed Assessment and Plan Assessment: Fall from ladder, sustaining right-sided mildly displaced rib fractures 3 through 9, with an associated small right-sided pleural effusion, possible tr aumatic hemothorax. No appreciable pneumothoraces. Head trauma, sustaining left eyebrow laceration Elevated livers enzymes, possibly secondary to trauma Acute kidney injury History of diabetes mellitus History of hyperlipidemia History of hypertension. History of coronary artery disease with previous PCI/stenting History of paroxysmal atrial fibrillation, chronically anticoagulated on Xarelto Indeterminate pancreas head and tail lesions, possible representing cyst per CT report. Can be further evaluated in an outpatient setting Plan: Patient's medications, labs, imaging reviewed Currently on room air, no acute respiratory distress. Encourage incentive spirometer and pulmonary toileting Pain is reportedly well-managed with current analgesic regimen including lidocaine patch and as needed [place]'s Patient's right-sided effusion and potential hemothorax is very small, generally requires no evacuation or thoracotomy tube. No appreciated pneumothoraces. Patient will be evaluated by the cardiothoracic team I have personally seen and examined the patient, performed the documentation and the assessment and plan as written. Number of minutes spent on the visit:20 Time with Patient: Greater than 30
--- NOTE | 2024-05-05 08:53 | P.GSHP ---
History of Present Illness H&P Date: 05/05/24 78-year-old male presents to the emergency department after fall from second rung of the ladder. He states he fell on his right side and denies loss of consciousness. He is found to have a contusion to the left orbit. He complained of right-sided chest pain. He does take Xarelto as a blood thinner. On workup, patient is found to have multiple mildly displaced rib fractures of the right side from ribs 3 through 9 with a small hemothorax. Contusion is noted at the left orbit. Patient denies any vision changes. Patient denies any abdominal pain. Patient is able to ambulate and does have an abrasion on the right upper extremity just proximal to the right elbow. He also was noted to have a right valentine abrasion. - Review of Systems All systems: negative Past Medical History Past Medical History: Diabetes Mellitus, Hyperlipidemia, Hypertension, Myocardial Infarction ([place]) History of Any Multi-Drug Resistant Organisms: None Reported Past Surgical History: Heart Catheterization With Stent Past Psychological History: No Psychological Hx Reported Smoking Status: Never smoker Past Alcohol Use History: None Reported Past Drug Use History: None Reported Medications and Allergies Home Medications Medication Instructions Recorded Confirmed Type Atorvastatin Calcium [Lipitor] 80 mg PO HS 02/21/22 05/04/24 History Indomethacin [Indocin] 50 mg PO TID PRN 02/21/22 05/04/24 History Losartan Potassium 50 mg PO DAILY 02/21/22 05/04/24 History Niacin [Niacin ER] 500 mg PO DAILY 02/21/22 05/04/24 History Tamsulosin HCl [Flomax] 0.4 mg PO DAILY 02/21/22 05/04/24 History allopurinoL [Zyloprim] 100 mg PO BID 02/21/22 05/04/24 History sitaGLIPtin PHOS/metFORMIN HCL 1 tab PO DAILY 02/21/22 05/04/24 History [Janumet 50-1,000 mg Tablet] Amiodarone [Cordarone] 200 mg PO DAILY 05/04/24 05/04/24 History Aspirin EC [Ecotrin Low Dose] 81 mg PO HS 05/04/24 05/04/24 History HYDROcodone/APAP 5-325MG [[place] 1 tab PO QID PRN 05/04/24 05/04/24 History 5-325] Metoprolol Tartrate [Lopressor] 50 mg PO BID 05/04/24 05/04/24 History Rivaroxaban [Xarelto] 20 mg PO DAILY 05/04/24 05/04/24 History Allergies Allergy/AdvReac Type Severity Reaction Status Date / Time No Known Allergies Allergy Verified 05/04/24 16:27 Surgical - Exam Osteopathic Statement: *. No significant issues noted on an osteopathic structural exam other than those noted in the History and Physical/Consult. Vital Signs Temp Pulse Resp BP Pulse Ox 97.6 F 68 18 92/55 98 05/04/24 12:58 05/04/24 12:58 05/04/24 12:58 05/04/24 12:58 05/04/24 12:58 - General well nourished, no distress - Eyes Ecchymosis and swelling to the left orbit - ENT no hearing loss - Neck trachea midline - Respiratory normal respiratory effort - Abdomen Soft, nontender, nondistended, no rebound, no guarding - Integumentary Abrasion to right upper extremity and right lower extremity - Psychiatric oriented to time, oriented to person, oriented to place Results - Labs 05/04/24 13:40 05/04/24 13:40 Abnormal Lab Results - Last 24 Hours (Table) 05/04/24 05/04/24 05/04/24 Range/Units 13:40 13:40 13:40 RBC 3.64 L (4.30-5.90) m/uL Hgb 12.1 L (13.0-17.5) gm/dL Hct 37.8 L (39.0-53.0) % MCV 103.9 H (80.0-100.0) fL PT 15.1 H (10.0-12.5) sec INR 1.5 H (<1.2) Sodium 135 L (137-145) mmol/L Carbon Dioxide 21 L (22-30) mmol/L BUN 27 H (9-20) mg/dL Creatinine 1.31 H (0.66-1.25) mg/dL Glucose 234 H (74-99) mg/dL AST 171 H (17-59) U/L ALT 165 H (4-49) U/L Alkaline Phosphatase 130 H (38-126) U/L Total Protein 6.1 L (6.3-8.2) g/dL Diabetes panel 05/04/24 Range/Units 13:40 Sodium 135 L (137-145) mmol/L Potassium 4.5 (3.5-5.1) mmol/L Chloride 107 (98-107) mmol/L Carbon Dioxide 21 L (22-30) mmol/L BUN 27 H (9-20) mg/dL Creatinine 1.31 H (0.66-1.25) mg/dL Glucose 234 H (74-99) mg/dL Calcium 9.5 (8.4-10.2) mg/dL AST 171 H (17-59) U/L ALT 165 H (4-49) U/L Alkaline Phosphatase 130 H (38-126) U/L Total Protein 6.1 L (6.3-8.2) g/dL Albumin 3.7 (3.5-5.0) g/dL Calcium panel 05/04/24 Range/Units 13:40 Calcium 9.5 (8.4-10.2) mg/dL Albumin 3.7 (3.5-5.0) g/dL Pituitary panel 05/04/24 Range/Units 13:40 Sodium 135 L (137-145) mmol/L Potassium 4.5 (3.5-5.1) mmol/L Chloride 107 (98-107) mmol/L Carbon Dioxide 21 L (22-30) mmol/L BUN 27 H (9-20) mg/dL Creatinine 1.31 H (0.66-1.25) mg/dL Glucose 234 H (74-99) mg/dL Calcium 9.5 (8.4-10.2) mg/dL Adrenal panel 05/04/24 Range/Units 13:40 Sodium 135 L (137-145) mmol/L Potassium 4.5 (3.5-5.1) mmol/L Chloride 107 (98-107) mmol/L Carbon Dioxide 21 L (22-30) mmol/L BUN 27 H (9-20) mg/dL Creatinine 1.31 H (0.66-1.25) mg/dL Glucose 234 H (74-99) mg/dL Calcium 9.5 (8.4-10.2) mg/dL Total Bilirubin 0.7 (0.2-1.3) mg/dL AST 171 H (17-59) U/L ALT 165 H (4-49) U/L Alkaline Phosphatase 130 H (38-126) U/L Total Protein 6.1 L (6.3-8.2) g/dL Albumin 3.7 (3.5-5.0) g/dL Assessment and Plan Plan: 78-year-old male with recent fall found to have multiple right-sided rib fractures with small hemothorax. No evidence of pneumothorax. Cardiothoracic surgery has been consulted as patient is on Xarelto with any concern of expanding hemothorax. Currently, patient is stable and oxygenating well. Recommended incentive spirometry. Pulmonary team is also following. Patient with significant analgesia with opiate, Robaxin, lidocaine patch. Due to significant ecchymosis and swelling around left orbit, CT of the maxillofacial was ordered. This is pending. Will have physical and Occupational Therapy evaluate the patient as well. Medical consult has been placed to the patient's primary care physician.
--- NOTE | 2024-05-05 09:09 | XR ---
EXAMINATION TYPE: XR chest 1V portable DATE OF EXAM: 05/05/2024 HISTORY: Shortness of breath. COMPARISON: 05/04/2024 TECHNIQUE: Single view of the chest is submitted. FINDINGS: Demonstrated are scattered senescent parenchymal change. There is no evidence for focal infiltrate. The heart is stable. Hilar and mediastinal structures are within normal limits. Degenerative changes are seen of the dorsal spine. IMPRESSION: 1. Chronic changes without evidence for acute pulmonary disease.
[2024-05-05] MEDS: LOSARTAN 50 MG TAB PO SCH (10:01)
[2024-05-05] MEDS: LINAGLIPTIN 5 MG TABLET PO SCH (10:01)
[2024-05-05] MEDS: TAMSULOSIN 0.4 MG CAP.ER.24H PO SCH (10:01)
[2024-05-05] MEDS: AMIODARONE 200 MG TAB PO SCH (10:01)
[2024-05-05] MEDS: metFORMIN 500 MG TAB PO SCH (10:01)
[2024-05-05] MEDS: NIACIN TR 500 MG CAPLET PO SCH (10:02)
--- NOTE | 2024-05-05 10:43 | CT ---
EXAMINATION TYPE: CT facial bones wo con DATE OF EXAM: 05/05/2024 COMPARISON: None HISTORY: Trauma, bruising over LT eye CT DLP: 583.[address] of the facial bones was performed in the axial and coronal planes. Bone and soft tissu e window settings are submitted. Soft tissue swelling about the left globe. I do not see evidence for displaced facial bone fracture or depressed facial bone fracture. The globes are intact. Paranasal sinuses are well-aerated. IMPRESSION: 1. No evidence for depressed or displaced facial bone fracture.
[2024-05-05 10:51] LABS: Basophils % (A) 0 %; Eosinophils # (A) 0.2 k/uL (0-0.7); Eosinophils % (A) 3 %; HCT 37.8 % (39.0-53.0); HGB 12.7 gm/dL (13.0-17.5); Lymphocytes # (A) 1.1 k/uL (1.0-4.8); Lymphocytes % (A) 13 %; MCH 34.7 pg (25.0-35.0); MCHC 33.5 g/dL (31.0-37.0); MCV 103.7 fL (80.0-100.0); Macrocytosis Slight; Mean Platelet Volume 7.6; Monocytes # (A) 0.5 k/uL (0-1.0); Monocytes % (A) 6 %; Neutrophils # (A) 6.6 k/uL (1.3-7.7); Neutrophils % (A) 77 %; Platelet Count 207 k/uL (150-450); RBC 3.65 m/uL (4.30-5.90); RDW 13.1 % (11.5-15.5); WBC 8.6 k/uL (3.8-10.6)
[2024-05-05] MEDS ORDERED: polyethylene glycoL 3350 17 GM POWD.PACK PO PRN (11:48)
--- NOTE | 2024-05-05 14:25 | P.GSCN ---
History of Present Illness Consult date: 05/05/24 Reason for Consult: Status post traumatic fall from ladder, multiple right rib fractures. Requesting physician: Eric Bansal History of present illness: This is a 78-year-old gentleman who follows on an outpatient basis for his primary care with Dr. Enrique Olsen. He has a past medical history significant for hypertension, hyperlipidemia, diabetes mellitus type 2, gout, benign prostatic hypertrophy, paroxysmal atrial fibrillation on Xarelto for anticoagulation, history of myocardial infarction 20 years ago status post PCI, essential tremor and is a life time non-smoker. He presented to the emergency department here at [facility] yesterday May 04, 2024 after falling off a ladder while trying to adjust a light fixture. The patient was complaining of some right-sided chest pain and also reports that the ladder might have fallen on his head giving him a laceration above his left eye. He denies any recent fever, chills, nausea, vomiting, diarrhea, constipation, hemoptysis, hematemesis, visual disturbances, orthopnea, presyncope or syncope. Subsequently due to the patient's fall a CT scan of the brain and C-spine was completed which did not show any intracranial hemorrhage or mass effect, no C- spine fracture or subluxation. For further evaluation a CT scan of his chest/ abdomen and pelvis was completed which revealed acute right rib fractures with mild displacement of ribs 3 through 9 with suspected hemothorax versus effusion on the right, and determinant pancreatic head and tail process lesions possibly representing cysts, cardiomegaly with moderate to severe coronary artery atherosclerosis, moderate aortic valve calcifications. Currently the patient is laying in bed in the emergency department, is complaining of pain to his bottom from lying in bed. He reports the rest of his pain seems well-controlled at this time. Due to the patient's report of rib fractures with a consult was placed to Dr. Gage Verdin from cardiothoracic surgery for further evaluation and treatment recommendations. Review of Systems A review of systems was completed and was negative except as mentioned in the HPI. Past Medical History Past Medical History: Atrial Fibrillation (Paroxysmal on Xarelto as an outp atient), Coronary Artery Disease (CAD) (Previous PCI, 5 stents according to the patient), Diabetes Mellitus, Hearing Disorder / Deafness (Bilateral hearing aids), Hyperlipidemia, Hypertension, Myocardial Infarction ([place]) (20 years ago), Prostate Disorder Additional Past Medical History / Comment(s): Essential tremor History of Any Multi-Drug Resistant Organisms: None Reported Past Surgical History: Heart Catheterization With Stent Additional Past Surgical History / Comment(s): Right great toe surgery, history of cardioversion within the last 7 to 8 months for his atrial fibrillation Past Anesthesia/Blood Transfusion Reactions: No Reported Reaction Past Psychological History: No Psychological Hx Reported Smoking Status: Never smoker Past Alcohol Use History: Rare Past Drug Use History: None Reported - Past Family History Mother Family Medical History: Vascular Disorder (Peripheral vascular disease) Father Family Medical History: Myocardial Infarction ([place]) Additional Family Medical History / Comment(s): Father from a myocardial infarction at age 62 Medications and Allergies Home Medications Medication Instructions Recorded Confirmed Type Atorvastatin Calcium [Lipitor] 80 mg PO HS 02/21/22 05/04/24 History Indomethacin [Indocin] 50 mg PO TID PRN 02/21/22 05/04/24 History Losartan Potassium 50 mg PO DAILY 02/21/22 05/04/24 History Niacin [Niacin ER] 500 mg PO DAILY 02/21/22 05/04/24 History Tamsulosin HCl [Flomax] 0.4 mg PO DAILY 02/21/22 05/04/24 History allopurinoL [Zyloprim] 100 mg PO BID 02/21/22 05/04/24 History sitaGLIPtin PHOS/metFORMIN HCL 1 tab PO DAILY 02/21/22 05/04/24 History [Janumet 50-1,000 mg Tablet] Amiodarone [Cordarone] 200 mg PO DAILY 05/04/24 05/04/24 History Aspirin EC [Ecotrin Low Dose] 81 mg PO HS 05/04/24 05/04/24 History HYDROcodone/APAP 5-325MG [Russell 1 tab PO QID PRN 05/04/24 05/04/24 History 5-325] Metoprolol Tartrate [Lopressor] 50 mg PO BID 05/04/24 05/04/24 History Rivaroxaban [Xarelto] 20 mg PO DAILY 05/04/24 05/04/24 History Allergies Allergy/AdvReac Type Severity Reaction Status Date / Time No Known Allergies Allergy Verified 05/04/24 16:27 Surgical - Exam Vital Signs Temp Pulse Resp BP Pulse Ox 97.6 F 68 18 92/55 98 05/04/24 12:58 05/04/24 12:58 05/04/24 12:58 05/04/24 12:58 05/04/24 12:58 - General Mild pain to his bottom well developed, well nourished, no distress, no obese - Eyes PERRL, normal ocular movement, no pale, no icteric - ENT normal pinna, normal nares, normal mucosa, no congestion, decreased hearing - Neck no masses, trachea midline, no venous distension carotid bruit: bilateral - Respiratory Lungs are essentially clear throughout, diminished to his bilateral bases right greater than left. Respirations are symmetrical and nonlabored. No wheezes, rhonchi or crackles. - Cardiovascular Regular rhythm and rate. S1 and S2 present, negative for S3, or gallop. Positive systolic murmur heard best to his left sternal border 2/6. No edema. - Abdomen Abdomen is soft, nontender and nondistended. Active bowel sounds present all 4 abdominal quadrants. No guarding or rigidity. No organomegaly appreciated. - Genitourinary Deferred - Rectum Deferred - Integumentary Skin is warm and dry. No clubbing or cyanosis is present. Abrasion above his left eye with some swelling. Abrasion to his right elbow with dressing clean, dry and intact. Band-Aid to his right great toe. no rash, no growths, no abnormal pigmentation - Musculoskeletal Moves all 4 extremities with equal strength bilateral. - Psychiatric oriented to time, oriented to person, oriented to place, speech is normal, memory intact Results - Labs 05/05/24 10:18 05/04/24 13:40 Abnormal Lab Results - Last 24 Hours (Table) 05/04/24 05/04/24 05/04/24 Range/Units 13:40 13:40 13:40 RBC 3.64 L (4.30-5.90) m/uL Hgb 12.1 L (13.0-17.5) gm/dL Hct 37.8 L (39.0-53.0) % MCV 103.9 H (80.0-100.0) fL PT 15.1 H (10.0-12.5) sec INR 1.5 H (<1.2) Sodium 135 L (137-145) mmol/L Carbon Dioxide 21 L (22-30) mmol/L BUN 27 H (9-20) mg/dL Creatinine 1.31 H (0.66-1.25) mg/dL Glucose 234 H (74-99) mg/dL AST 171 H (17-59) U/L ALT 165 H (4-49) U/L Alkaline Phosphatase 130 H (38-126) U/L Total Protein 6.1 L (6.3-8.2) g/dL 05/05/24 Range/Units 10:18 RBC 3.65 L (4.30-5.90) m/uL Hgb 12.7 L (13.0-17.5) gm/dL Hct 37.8 L (39.0-53.0) % MCV 103.7 H (80.0-100.0) fL PT (10.0-12.5) sec INR (<1.2) Sodium (137-145) mmol/L Carbon Dioxide (22-30) mmol/L BUN (9-20) mg/dL Creatinine (0.66-1.25) mg/dL Glucose (74-99) mg/dL AST (17-59) U/L ALT (4-49) U/L Alkaline Phosphatase (38-126) U/L Total Protein (6.3-8.2) g/dL Diabetes panel 05/04/24 Range/Units 13:40 Sodium 135 L (137-145) mmol/L Potassium 4.5 (3.5-5.1) mmol/L Chloride 107 (98-107) mmol/L Carbon Dioxide 21 L (22-30) mmol/L BUN 27 H (9-20) mg/dL Creatinine 1.31 H (0.66-1.25) mg/dL Glucose 234 H (74-99) mg/dL Calcium 9.5 (8.4-10.2) mg/dL AST 171 H (17-59) U/L ALT 165 H (4-49) U/L Alkaline Phosphatase 130 H (38-126) U/L Total Protein 6.1 L (6.3-8.2) g/dL Albumin 3.7 (3.5-5.0) g/dL Calcium panel 05/04/24 Range/Units 13:40 Calcium 9.5 (8.4-10.2) mg/dL Albumin 3.7 (3.5-5.0) g/dL Pituitary panel 05/04/24 Range/Units 13:40 Sodium 135 L (137-145) mmol/L Potassium 4.5 (3.5-5.1) mmol/L Chloride 107 (98-107) mmol/L Carbon Dioxide 21 L (22-30) mmol/L BUN 27 H (9-20) mg/dL Creatinine 1.31 H (0.66-1.25) mg/dL Glucose 234 H (74-99) mg/dL Calcium 9.5 (8.4-10.2) mg/dL Adrenal panel 05/04/24 Range/Units 13:40 Sodium 135 L (137-145) mmol/L Potassium 4.5 (3.5-5.1) mmol/L Chloride 107 (98-107) mmol/L Carbon Dioxide 21 L (22-30) mmol/L BUN 27 H (9-20) mg/dL Creatinine 1.31 H (0.66-1.25) mg/dL Glucose 234 H (74-99) mg/dL Calcium 9.5 (8.4-10.2) mg/dL Total Bilirubin 0.7 (0.2-1.3) mg/dL AST 171 H (17-59) U/L ALT 165 H (4-49) U/L Alkaline Phosphatase 130 H (38-126) U/L Total Protein 6.1 L (6.3-8.2) g/dL Albumin 3.7 (3.5-5.0) g/dL - Imaging Chest x-ray: report reviewed, image reviewed CT scan - chest: report reviewed, image reviewed (CT scan of the chest results reviewed by Dr. Gage Verdin) Assessment and Plan Assessment: Fall from ladder, sustaining right-sided rib fractures 3 through 9 with no appreciable pneumothoraces Head trauma, sustaining left eyebrow laceration History of diabetes Hyperlipidemia Hypertension History of myocardial infarction 20 years ago Coronary artery disease with previous PCI Paroxysmal atrial fibrillation, on Xarelto as an outpatient Gout Benign prostatic hypertrophy Lifetime non-smoker History of recent right great toe infection status post surgery Essential tremors Plan: The patient was seen in conjunction with Dr. Gage Verdin from cardiothoracic surgery in the emergency department. His chart and diagnostics were reviewed. The patient's daughters present at his bedside. Dr. Verdin discussed the findings on the CT scan of the chest with the patient, and no surgery is indicated at this time. The patient pain is well-controlled. Incentive spirometry has been ordered 10 times every hour while awake. Medical management and other comorbidities per primary care service, trauma service and pulmonary medicine. The patient will need pain management for his rib fractures. We will continue to follow the patient on an as-needed basis please feel free to recons ult us if needed. Thank you Dr. Bansal for this consult. I have personally seen and examined the patient, performed the documentation and the assessment and plan as written. Number of minutes spent on the visit: 30. RENNY Coats
--- NOTE | 2024-05-05 15:11 | P.PAINPG ---
Objective - Vital Signs Vital signs: Vital Signs Temp 98.2 F 05/05/24 09:30 Pulse 61 05/05/24 10:06 Resp 18 05/05/24 10:06 BP 133/98 05/05/24 10:06 Pulse Ox 95 05/05/24 10:06 FiO2 Intake & Output 05/04/24 05/05/24 05/05/24 18:59 06:59 18:59 Weight 75.75 kg - Labs CBC & Chem 7: 05/05/24 10:18 05/04/24 13:40 Labs: Abnormal Lab Results - Last 24 Hours (Table) 05/04/24 05/05/24 Range/Units 13:40 10:18 RBC 3.65 L (4.30-5.90) m/uL Hgb 12.7 L (13.0-17.5) gm/dL Hct 37.8 L (39.0-53.0) % MCV 103.7 H (80.0-100.0) fL Sodium 135 L (137-145) mmol/L Carbon Dioxide 21 L (22-30) mmol/L BUN 27 H (9-20) mg/dL Creatinine 1.31 H (0.66-1.25) mg/dL Glucose 234 H (74-99) mg/dL AST 171 H (17-59) U/L ALT 165 H (4-49) U/L Alkaline Phosphatase 130 H (38-126) U/L Total Protein 6.1 L (6.3-8.2) g/dL PQRS Measure Charge Sheet Comment: HISTORY OF PRESENT ILLNESS: A 78 yr old male w 2 female companions at side presents today w severe acute R sided rib pain secondary to R 3rd-9th rib fractures due to fall for evaluation. Pt states pain level is provoked at 9 /10 in intensity, constant, localized in the R ribs, sharp/ stabbing in character without shooting pain . Pain is provoked by any movement. Pt states Ashfield does not alleviate pain. Pain is alleviated by medications (MS 4mg IVP q4h, Ashfield 5/325mg q6h, Robaxin, Tyl 650mg q6h), repositioning and rest . PMH: OA, NIDDM II, Hyperlipidemia, HTN, PR PSH: Heart Catheterization With Stent SH: Negative x3 FH: Non contributory All: See list Meds: See list REVIEW OF ORGAN SYSTEMS: CONSTITUTIONAL: No fevers or chills. No recent weight loss. NEUROLOGICAL: + numbness and tingling along the distal extremities. No seizure disorders or headaches. MUSCULOSKELETAL: + pain PSYCHIATRIC: Denies current depression or suicidal thoughts. Physical Examinations : Constitutional : Cooperative , not in acute distress . Neurologic : Cranial nerve II to XII intact. No focal neurological deficits. Psychiatric : alert & oriented x 3. Matching mood & appropriate affect. Judgment & insight intact. Musculoskeletal : Cervical Spine Motor strength in the deltoid and biceps: Normal right side. Normal Left side Motor strength biceps and the wrist extensors: Normal right side . Normal left side Motor strength in the triceps muscle: Normal right side. Normal left side Deep tendon reflexes: Normal at the biceps. Normal at Brachioradialis. Normal at triceps Vertebral body tenderness to deep palpation over Cervical facet loading test: positive b ilaterally Spurling test: positive bilaterally Neck distraction test: positive bilaterally Ary sign: positive bilaterally Lumbar spine Motor strength lower extremities ,thigh and legs 5/5 Right side , 5/5 Left side Deep tendon reflexes : Normal Knee Jerk. Normal Ankle Jerk Vertebral body tenderness over Weiner Test positive Lumbar facet Loading Test: positive Right / positive Left Range of motion of the lumbar spine Flexion 30 degrees, extension 10 degrees Straight Leg Raise test: Left/ Right positive at degrees Jeff test: positive right / positive left. Severe tenderness over the Sacroiliac joint on the Right / Left sides Gaenslen test: positive bilaterally Seated flexion test: positive bilaterally. Sacral spine : Severe tenderness over the Sacroiliac joint: right side / left side Range of motion: Flexion of the lumbar spine <60 degrees Range of motion: Extension of the lumbar spine <20 degrees Gaenslen's Test positive Jeff test: positive right side / left side Thigh Thrust Test Sacral Thrust Test Imaging: CT non contrast chest from 05/04/24 shows R 3rd-9th minimally displaced rib fractures Assessment/ Plan : Thoracic radiculopathy Recommendation of DAVID [id number] #1. Last dose of Xarelto was 05/04/24. Risks, jaqueline efits of procedure discussed and patient verbalized understanding. Admits to anti- coagulant use or medical history of diabetes. Protocol for discontinuation/ continuation of medications cristobal procedure discussed. Will discontinue Ashfield per pt request and replace w Oxycodone 5mg q4h prn. All questions answered. I have spent greater than 30 minutes on patient care today. Dr Banerjee was available by phone for the evaluation of this patient. The time was used to review the medical records including relevant urine studies and Prescription history (MAPs), review of the available imaging, evaluation and examination of the patient, coordination of care with the medical staff and if applicable refe rring physicians, as well as creation of the medical record PQRS Narrative: Blood Pressure [Left Arm] 109/50 Blood Pressure 133/98 Pain Intensity 3 Pain Scale Used Numeric (1 - 10) Scale Used Numeric (1 - 10) Home Medications: Ambulatory Orders Atorvastatin Calcium [Lipitor] 80 mg PO HS 02/21/22 Indomethacin [Indocin] 50 mg PO TID PRN 02/21/22 Losartan Potassium 50 mg PO DAILY 02/21/22 Niacin [Niacin ER] 500 mg PO DAILY 02/21/22 Tamsulosin HCl [Flomax] 0.4 mg PO DAILY 02/21/22 allopurinoL [Zyloprim] 100 mg PO BID 02/21/22 sitaGLIPtin PHOS/metFORMIN HCL [Janumet 50-1,000 mg Tablet] 1 tab PO DAILY 02/21/22 Amiodarone [Cordarone] 200 mg PO DAILY 05/04/24 Aspirin EC [Ecotrin Low Dose] 81 mg PO HS 05/04/24 HYDROcodone/APAP 5-325MG [Ashfield 5-325] 1 tab PO QID PRN 05/04/24 Metoprolol Tartrate [Lopressor] 50 mg PO BID 05/04/24 Rivaroxaban [Xarelto] 20 mg PO DAILY 05/04/24 Controlled Substance Measures - Controlled Substance Measures Is patient prescribed a controlled substance at discharge?: No
[2024-05-05] MEDS: MORPHINE SULFATE 4 MG/ML SYRINGE IVP PRN (15:25)
--- NOTE | 2024-05-05 15:25 | P.CONS ---
History of Present Illness - Reason for Consult Consult date: 05/05/24 - Chief Complaint Rib fracture secondary to mechanical fall - History of Present Illness 78-year-old man presented emergency department with complaints of having a mechanical fall. He has a past medical history significant for diabetes mellitus, hyperlipidemia, hypertension, CAD with previous PCI/LAD stenting, and atrial fibrillation anticoagulated on Xarelto. Patient was on a ladder when he lost his balance and fell on his right side. On presentation had a laceration to the left eyebrow which the patient reports was possibly caused by the ladder falling and striking his head. He reported to the emergency department that he had pain in his head and ribs, however no neck, back or abdominal pain. He denied any loss of consciousness. Patient's blood pressure 151/69, heart rate of 52, respiratory rate of 18 while having oxygen saturation 92% on room air. He takes Xarelto at home which has since been discontinued. Pulmonology has been consulted and seen the patient, reporting that he is show no signs of respiratory distress. He has been given incentive spirometer and has been using it consistently. We have been consulted to continue medical management of this patient. Initial lab work done in the ER showed WBCs 7.0, Hgb 12.1, Hct 37.8, Mcv 103.9, PT 15.1, INR 1.5, sodium 135, BUN 27, creatinine 1.31, glucose 234, AST 171, ALT 165, alkaline phosphatase 130 EKG done in the ER showed heart rate of 60, no ST segment elevation or depression seen, no T-wave inversions seen. Chest x-ray done in the ER showed low lung volumes with generalized hazy appearance which could represent atelectasis versus pulmonary edema which should be correlated with a serum BNP (which has been ordered) Pelvis x-ray done in ED showed no acute osseous pathology CT chest/abdomen/pelvis showed acute rib fractures with mild displacement of ribs 3 through 9 with suspected hemothorax versus effusion peripherally, spine appears to be intact for fracture, intermediate pancreatic head and tail process lesions possibly representing cyst (further workup recommended with MRCP with IV contrast), cardiomegaly with moderate to severe coronary artery atherosclerosis, moderate aortic valve calcifications CT head/cervical spine done showed no acute intracranial process, no evidence of cervical spine fracture, moderate multilevel degenerative disc disease Patient admitted to internal medicine service REVIEW OF SYSTEMS: CONSTITUTIONAL: No fever, no malaise, no fatigue. HEENT: No recent visual problems or hearing problems. Denied any sore throat. CARDIOVASCULAR: No chest pain, orthopnea, PND, no palpitations, no syncope. PULMONARY: No shortness of breath, no cough, no hemoptysis. GASTROINTESTINAL: No diarrhea, no nausea, no vomiting, no abdominal pain. NEUROLOGICAL: No headaches, no weakness, no numbness. HEMATOLOGICAL: Denies any bleeding or petechiae. GENITOURINARY: Denies any burning micturition, frequency, or urgency. MUSCULOSKELETAL/RHEUMATOLOGICAL: Denies any joint pain, swelling, or any muscle pain. ENDOCRINE: Denies any polyuria or polydipsia. The rest of the 14-point review of systems is negative. PHYSICAL EXAMINATION: GENERAL: The patient is alert and oriented x3, not in any acute distress. Well developed, well nourished. Discomfort noted due to pain from his ribs. HEENT: Pupils are round and equally reacting to light. EOMI. No scleral icterus. No conjunctival pallor. Normocephalic, atraumatic. No pharyngeal erythema. No thyromegaly. Laceration of the left eyebrow. CARDIOVASCULAR: S1 and S2 present. No murmurs, rubs, or gallops. PULMONARY: Chest is clear to auscultation, no wheezing or crackles. ABDOMEN: Soft, nontender, nondistended, normoactive bowel sounds. No palpable organomegaly. Mild tenderness of the right upper abdomen. MUSCULOSKELETAL: No joint swelling or deformity. Chest wall tenderness on the right side. EXTREMITIES: No cyanosis, clubbing, or pedal edema. NEUROLOGICAL: Gross neurological examination did not reveal any focal deficits. SKIN: No rashes. Open scrape on his right elbow and his right knee, both cared for and covered with bandages. # Mildly displaced rib fractures of ribs 3 through 9 secondary to mechanical fall CT chest/abdomen/pelvis showed acute rib fractures with mild displacement of ribs 3 through 9 Patient had mechanical fall from a ladder Patient has had lidocaine patches placed Patient has Clubb 5325 to control his pain; patient states his pain is well-controlled at this time; has since been discontinued Patient has morphine 2 mg and/or 4 mg every 4 hours as needed and Percocet 5325 every 4 hours as needed available to control the pain # Small right-sided pleural effusion, possible traumatic hemothorax secondary to mechanical fall CT chest/abdomen/pelvis showed that with the rib fractures and mild displacement of ribs 3 through 9 there is suspected hemothorax versus possible pleural effusion Patient is currently on room air, breathing comfortably while saturating in the low to mid 90s # Laceration to left eyebrow secondary to head trauma as a result of mechanical fall Patient a laceration of his left eyebrow noted on presentation to the emergency department Laceration was repaired in the emergency department, was reported as 3 cm # Abrasions on right elbow, right knee and right heel secondary to fall Controlled with bandages Wound care consulted to help monitor and care for these wounds Patient has MiraLAX as needed and will take senna nightly for constipation due to pain medication. Continue to monitor vital signs, monitor CBC, monitor CMP, continue telemetry monitoring Labs and medication were reviewed. Continue with symptomatic treatment. Resume home medication as able. Further recommendations as per clinical course of the patient. Thank you for this consult we will continue to manage and follow medically as needed. Dr. Whitley MD I have performed a history and physical examination and medical decision making of this patient, discussed the same with the the resident, and agree with the assessment and plan as written. I performed brief physical exam. Past Medical History Past Medical History: Atrial Fibrillation (Paroxysmal on Xarelto as an outpatient), Coronary Artery Disease (CAD) (Previous PCI, 5 stents according to the patient), Diabetes Mellitus, Hearing Disorder / Deafness (Bilateral hearing aids), Hyperlipidemia, Hypertension, Myocardial Infarction (DC) (20 years ago), Prostate Disorder Additional Past Medical History / Comment(s): Essential tremor History of Any Multi-Drug Resistant Organisms: None Reported Past Surgical History: Heart Catheterization With Stent Additional Past Surgical History / Comment(s): Right great toe surgery, history of cardioversion within the last 7 to 8 months for his atrial fibrillation Past Anesthesia/Blood Transfusion Reactions: No Reported Reaction Past Psychological History: No Psychological Hx Reported Smoking Status: Never smoker Past Alcohol Use History: Rare Past Drug Use History: None Reported - Past Family History Mother Family Medical History: Vascular Disorder (Peripheral vascular disease) Father Family Medical History: Myocardial Infarction (DC) Additional Family Medical History / Comment(s): Father from a myocardial infarction at age 62 Medications and Allergies Home Medications Medication Instructions Recorded Confirmed Type Atorvastatin Calcium [Lipitor] 80 mg PO HS 02/21/22 05/04/24 History Indomethacin [Indocin] 50 mg PO TID PRN 02/21/22 05/04/24 History Losartan Potassium 50 mg PO DAILY 02/21/22 05/04/24 History Niacin [Niacin ER] 500 mg PO DAILY 02/21/22 05/04/24 History Tamsulosin HCl [Flomax] 0.4 mg PO DAILY 02/21/22 05/04/24 History allopurinoL [Zyloprim] 100 mg PO BID 02/21/22 05/04/24 History sitaGLIPtin PHOS/metFORMIN HCL 1 tab PO DAILY 02/21/22 05/04/24 History [Janumet 50-1,000 mg Tablet] Amiodarone [Cordarone] 200 mg PO DAILY 05/04/24 05/04/24 History Aspirin EC [Ecotrin Low Dose] 81 mg PO HS 05/04/24 05/04/24 History HYDROcodone/APAP 5-325MG [Clubb 1 tab PO QID PRN 05/04/24 05/04/24 History 5-325] Metoprolol Tartrate [Lopressor] 50 mg PO BID 05/04/24 05/04/24 History Rivaroxaban [Xarelto] 20 mg PO DAILY 05/04/24 05/04/24 History Allergies Allergy/AdvReac Type Severity Reaction Status Date / Time No Known Allergies Allergy Verified 05/04/24 16:27 Physical Exam Vitals: Vital Signs Temp Pulse Resp BP Pulse Ox 05/05/24 10:06 61 18 133/98 95 05/05/24 09:30 98.2 F 66 20 139/62 94 L 05/05/24 06:25 52 L 18 151/69 92 L 05/05/24 00:00 56 L 18 140/66 93 L 05/04/24 22:11 55 L 17 132/64 94 L 05/04/24 19:17 53 L 17 148/65 05/04/24 18:38 58 L 18 169/75 97 05/04/24 18:30 96 05/04/24 17:30 58 L 16 158/68 99 05/04/24 16:14 52 L 18 149/59 100 Results CBC & Chem 7: 05/06/24 07:55 05/04/24 13:40 Labs: Abnormal Lab Results - Last 24 Hours (Table) 05/04/24 05/05/24 Range/Units 13:40 10:18 RBC 3.65 L (4.30-5.90) m/uL Hgb 12.7 L (13.0-17.5) gm/dL Hct 37.8 L (39.0-53.0) % MCV 103.7 H (80.0-100.0) fL Sodium 135 L (137-145) mmol/L Carbon Dioxide 21 L (22-30) mmol/L BUN 27 H (9-20) mg/dL Creatinine 1.31 H (0.66-1.25) mg/dL Glucose 234 H (74-99) mg/dL AST 171 H (17-59) U/L ALT 165 H (4-49) U/L Alkaline Phosphatase 130 H (38-126) U/L Total Protein 6.1 L (6.3-8.2) g/dL
[2024-05-05 18:22] LABS: Glucose,Whole Blood 241 mg/dL (70-110)
[2024-05-05] MEDS: SENNOSIDES 8.6 MG TAB PO SCH (20:04)
[2024-05-05 20:30] LABS: Glucose,Whole Blood 259 mg/dL (70-110)
[2024-05-06] MEDS: oxyCODONE-APAP 5-325MG 1 EACH TAB PO PRN (00:19)
[2024-05-06 06:22] LABS: Glucose,Whole Blood 207 mg/dL (70-110)
[2024-05-06 08:07] LABS: Basophils % (A) 0 %; Eosinophils # (A) 0.3 k/uL (0-0.7); Eosinophils % (A) 4 %; HCT 35.3 % (39.0-53.0); HGB 11.5 gm/dL (13.0-17.5); Lymphocytes # (A) 1.3 k/uL (1.0-4.8); Lymphocytes % (A) 16 %; MCHC 32.4 g/dL (31.0-37.0); MCV 104.8 fL (80.0-100.0); Macrocytosis Slight; Mean Platelet Volume 7.4; Monocytes # (A) 0.7 k/uL (0-1.0); Monocytes % (A) 8 %; Neutrophils # (A) 6.1 k/uL (1.3-7.7); Neutrophils % (A) 71 %; Platelet Count 209 k/uL (150-450); RBC 3.37 m/uL (4.30-5.90); RDW 13.2 % (11.5-15.5); WBC 8.6 k/uL (3.8-10.6)
[2024-05-06 11:18] LABS: Glucose,Whole Blood 255 mg/dL (70-110)
[2024-05-06] MEDS: ACETAMINOPHEN IV (For NPO) 1,000 MG in EMPTY BAG 1 BAG IVPB PRN (12:19)
[2024-05-06] MEDS: GABAPENTIN 300 MG CAP PO SCH (12:19)
--- NOTE | 2024-05-06 12:52 | P.PN ---
Subjective Progress Note Date: 05/06/24 78-year-old man presented emergency department with complaints of having a mechanical fall. He has a past medical history significant for diabetes mellitus, hyperlipidemia, hypertension, CAD with previous PCI/LAD stenting, and atrial fibrillation anticoagulated on Xarelto. Patient was on a ladder when he lost his balance and fell on his right side. On presentation had a laceration to the left eyebrow which the patient reports was possibly caused by the ladder falling and striking his head. He reported to the emergency department that he had pain in his head and ribs, however no neck, back or abdominal pain. He denied any loss of consciousness. Patient's blood pressure 151/69, heart rate of 52, respiratory rate of 18 while having oxygen saturation 92% on room air. He takes Xarelto at home which has since been discontinued. Pulmonology has been consulted and seen the patient, reporting that he is show no signs of respiratory distress. He has been given incentive spirometer and has been using it consistently. We have been consulted to continue medical management of this patient. Initial lab work done in the ER showed WBCs 7.0, Hgb 12.1, Hct 37.8, Mcv 103.9, PT 15.1, INR 1.5, sodium 135, BUN 27, creatinine 1.31, glucose 234, AST 171, ALT 165, alkaline phosphatase 130 EKG done in the ER showed heart rate of 60, no ST segment elevation or depression seen, no T-wave inversions seen. Chest x-ray done in the ER showed low lung volumes with generalized hazy appearance which could represent atelectasis versus pulmonary edema which should be correlated with a serum BNP (which has been ordered) Pelvis x-ray done in ED showed no acute osseous pathology CT chest/abdomen/pelvis showed acute rib fractures with mild displacement of ribs 3 through 9 with suspected hemothorax versus effusion peripherally, spine appears to be intact for fracture, intermediate pancreatic head and tail process lesions possibly representing cyst (further workup recommended with MRCP with IV contrast), cardiomegaly with moderate to severe coronary artery atherosclerosis, moderate aortic valve calcifications CT head/cervical spine done showed no acute intracranial process, no evidence of cervical spine fracture, moderate multilevel degenerative disc disease 05/06 - Patient seen at bedside. Currently states he is feeling well, with discomfort due to his ribs. Pain has been controlled through pain management stating that the pain is alleviated by medications (MS 4 mg IVP every 4 hours, Winfield 5/325 mg every 6 hours, Robaxin, Tylenol 650 mg every 6 hours). Per pain management's recommendation, Winfield will be discontinued and replaced with oxycodone 5 mg every 4 hours as needed. Patient states he continues to have discomfort on his right side, however has been trying to move more and is highly motivated to get moving. He he continues to use his incentive spirometer. Added Protonix 40 mg daily for additional GI prophylaxis. Will continue to follow and monitor as needed. REVIEW OF SYSTEMS: CONSTITUTIONAL: No fever, no malaise, no fatigue. HEENT: No recent visual problems or hearing problems. Denied any sore throat. CARDIOVASCULAR: No chest pain, orthopnea, PND, no palpitations, no syncope. PULMONARY: No shortness of breath, no cough, no hemoptysis. GASTROINTESTINAL: No diarrhea, no nausea, no vomiting, no abdominal pain. NEUROLOGICAL: No headaches, no weakness, no numbness. HEMATOLOGICAL: Denies any bleeding or petechiae. GENITOURINARY: Denies any burning micturition, frequency, or urgency. MUSCULOSKELETAL/RHEUMATOLOGICAL: Denies any joint pain, swelling, or any muscle pain. ENDOCRINE: Denies any polyuria or polydipsia. The rest of the 14-point review of systems is negative. PHYSICAL EXAMINATION: GENERAL: The patient is alert and oriented x3, not in any acute distress. Well developed, well nourished. Discomfort noted due to pain from his ribs. HEENT: Pupils are round and equally reacting to light. EOMI. No scleral icterus. No conjunctival pallor. Normocephalic, atraumatic. No pharyngeal erythema. No thyromegaly. Laceration of the left eyebrow. CARDIOVASCULAR: S1 and S2 present. No murmurs, rubs, or gallops. PULMONARY: Chest is clear to auscultation, no wheezing or crackles. ABDOMEN: Soft, nontender, nondistended, normoactive bowel sounds. No palpable organomegaly. Mild tenderness of the right upper abdomen. MUSCULOSKELETAL: No joint swelling or deformity. Chest wall tenderness on the right side. EXTREMITIES: No cyanosis, clubbing, or pedal edema. NEUROLOGICAL: Gross neurological examination did not reveal any focal deficits. SKIN: No rashes. Open scrape on his right elbow and his right knee, both cared for and covered with bandages. Assessment and plan # Mildly displaced rib fractures of ribs 3 through 9 secondary to mechanical fall CT chest/abdomen/pelvis showed acute rib fractures with mild displacement of ribs 3 through 9 Patient had mechanical fall from a ladder Patient has had lidocaine patches placed Patient has Winfield 5325 to control his pain; patient states his pain is well-c ontrolled at this time; has since been discontinued Patient has morphine 2 mg and/or 4 mg every 4 hours as needed and Percocet 5325 every 4 hours as needed available to control the pain # Small right-sided pleural effusion, possible traumatic hemothorax secondary to mechanical fall CT chest/abdomen/pelvis showed that with the rib fractures and mild displacement of ribs 3 through 9 there is suspected hemothorax versus possible pleural effusion Patient is currently on room air, breathing comfortably while saturating in the low to mid 90s # Laceration to left eyebrow secondary to head trauma as a result of mechanical fall Patient a laceration of his left eyebrow noted on presentation to the emergency department Laceration was repaired in the emergency department, was reported as 3 cm # Abrasions on right elbow, right knee and right heel secondary to fall Controlled with bandages Wound care consulted to help monitor and care for these wounds Patient has MiraLAX as needed and will take senna nightly for constipation due to pain medication. GI prophylaxis: Protonix 40 mg daily Continue to monitor vital signs, monitor CBC, monitor CMP, continue telemetry monitoring Labs and medication were reviewed. Continue with symptomatic treatment. Resume home medication as able. Further recommendations as per clinical course of the patient. Thank you for this consult we will continue to manage and follow medically as needed. Dictation was produced using Submittable dictation software. please excuse any grammatical, word or spelling errors. Dr. Whitley MD I have performed a history and physical examination and medical decision making of this patient, discussed the same with the the resident, and agree with the assessment and plan as written. I performed brief physical exam. Objective - Vital Signs Vital signs: Vital Signs Temp 98.1 F 05/06/24 04:50 Pulse 58 L 05/06/24 04:50 Resp 16 05/06/24 04:50 BP 124/65 05/06/24 04:50 Pulse Ox 94 L 05/06/24 04:50 FiO2 Intake & Output 05/05/24 05/06/24 05/06/24 18:59 06:59 18:59 Intake Total 118 Balance 118 Weight 75.75 kg 79 kg Intake: Oral 118 Other: Voiding Method Urinal # Voids 1 - Labs CBC & Chem 7: 05/06/24 07:55 05/04/24 13:40 Labs: Abnormal Lab Results - Last 24 Hours (Table) 05/05/24 05/05/24 05/05/24 Range/Units 10:18 18:20 20:28 RBC 3.65 L (4.30-5.90) m/uL Hgb 12.7 L (13.0-17.5) gm/dL Hct 37.8 L (39.0-53.0) % MCV 103.7 H (80.0-100.0) fL POC Glucose (mg/dL) 241 H 259 H (70-110) mg/dL 05/06/24 Range/Units 06:20 RBC (4.30-5.90) m/uL Hgb (13.0-17.5) gm/dL Hct (39.0-53.0) % MCV (80.0-100.0) fL POC Glucose (mg/dL) 207 H (70-110) mg/dL
[2024-05-06] MEDS: PANTOPRAZOLE 40 MG TABLET PO SCH (13:00)
--- NOTE | 2024-05-06 14:01 | P.PN ---
Subjective Progress Note Date: 05/06/24 Principal diagnosis: Traumatic multiple rib fractures Patient is a 78-year-old white male with past medical history significant for diabetes mellitus, hyperlipidemia, hypertension, CAD with previous PCI/stenting, and atrial fibrillation anticoagulated on Xarelto. Patient presented to the ED yesterday after falling approximately 2 feet from ladder. He was changing a light fixture. Does report head trauma. There is a laceration to left eyebrow. Does take Xarelto on outpatient basis. CT of the brain and C-spine does not show any intracranial hemorrhage or mass effect. No C-spine fracture or subluxation. Also, reports some right-sided chest pain. CT of chest, abdomen, pelvis demonstrated acute right-sided rib fractures with mild displacement of ribs 3 through 9, and small right-sided effusion, possible hemothorax. No appreciable pneumothoraces. The fluid collection is small, doubt the patient would benefit from thoracotomy tube. Cardiothoracic consult was also placed. Patient is currently in the emergency department, room 2. He is on room air. SpO2 is 93%. No signs of respiratory distress. We will need to get him an incentive spirometer. Continues to have right-sided rib pain. No crepitus or subcutaneous emphysema. There is a lidocaine patch on. Patient also receiving as needed [facility]ipley's. Reports that his pain is fairly well-managed at this time. Patient was today on 05/06/2024, on room air with O2 sats of 96%, does not seem to be in any distress, patient seems to be relatively controlled, being considered for epidural injections for his severe pain. In the meantime the patient is receiving Ripley. And morphine IV push as needed. Patient is being followed by pain team for his pain and he is also on lidocaine patch applied d aily. Labs WBC count is 8.6 hemoglobin 11.5. Chest x-ray from admission was reviewed, follow-up chest x-ray to be done in a.m. was ordered. Objective - Vital Signs Vital signs: Vital Signs Temp 97.7 F 05/06/24 09:21 Pulse 62 05/06/24 11:14 Resp 15 05/06/24 11:14 BP 128/65 05/06/24 11:14 Pulse Ox 93 L 05/06/24 11:14 FiO2 Intake & Output 05/05/24 05/06/24 05/06/24 18:59 06:59 18:59 Intake Total 118 118 Output Total 300 Balance 118 -182 Weight 75.75 kg 79 kg Intake: Oral 118 118 Output: Urine 300 Other: Voiding Method Urinal Urinal # Voids 1 1 - Exam GENERAL EXAM: Alert, 78-year-old white male, appearing stated age, comfortable in no apparent distress. On room air HEAD: Normocephalic and left frontal eyebrow trauma/ecchymosis/laceration/periorbital swelling EYES: Normal reaction of pupils, equal size. NOSE: Clear with pink turbinates. THROAT: No erythema or exudates. NECK: No masses, no JVD. CHEST: No chest wall deformity. Grimacing with palpation of right anterior thorax. No gross deformities or crepitus. No subcutaneous emphysema. LUNGS: Equal air entry with no crackles, wheeze, rhonchi or dullness. On room air. No conversational dyspnea or accessory muscle use.. CVS: S1 and S2 normal with no audible murmur, regular rhythm. No extra heart sounds ABDOMEN: No hepatosplenomegaly, active bowel sounds, no guarding or rigidity. SKIN: Right valentine abrasion. Right elbow skin tear. CENTRAL NERVOUS SYSTEM: No focal deficits, tone is normal in all 4 extremities. EXTREMITIES: There is no peripheral edema, clubbing, or cyanosis. Peripheral pulses are intact. - Labs CBC & Chem 7: 05/06/24 07:55 05/04/24 13:40 Labs: Abnormal Lab Results - Last 24 Hours (Table) 05/05/24 05/05/24 05/06/24 Range/Units 18:20 20:28 06:20 RBC (4.30-5.90) m/uL Hgb (13.0-17.5) gm/dL Hct (39.0-53.0) % MCV (80.0-100.0) fL POC Glucose (mg/dL) 241 H 259 H 207 H (70-110) mg/dL 05/06/24 05/06/24 Range/Units 07:55 11:15 RBC 3.37 L (4.30-5.90) m/uL Hgb 11.5 L (13.0-17.5) gm/dL Hct 35.3 L (39.0-53.0) % MCV 104.8 H (80.0-100.0) fL POC Glucose (mg/dL) 255 H (70-110) mg/dL Assessment and Plan Assessment: Impression: Fall from ladder, sustaining right-sided mildly displaced rib fractures 3 th rough 9, with an associated small right-sided pleural effusion, possible traumatic hemothorax. No appreciable pneumothoraces. Head trauma, sustaining left eyebrow laceration Acute kidney injury History of diabetes mellitus History of hyperlipidemia History of hypertension. History of coronary artery disease with previous PCI/stenting History of paroxysmal atrial fibrillation, chronically anticoagulated on Xarelto Indeterminate pancreas head and tail lesions, possible representing cyst per CT report. Can be further evaluated in an outpatient setting by his primary care physician Recommendation: Continue pain management Continue incentive spirometry Ambulate as tolerated Repeat chest x-ray in a.m. for follow-up on his potential hemothorax from chest wall trauma Will continue to follow Time with Patient: Less than 30
[2024-05-06] MEDS ORDERED: DEXTROSE 50% SYRINGE 50 ML IVP PRN ×2 (14:18)
[2024-05-06 16:36] LABS: Glucose,Whole Blood 226 mg/dL (70-110)
[2024-05-06] MEDS: INSULIN ASPART (NovoLOG) 100 UNIT/ML VIAL SQ SCH (16:49)
[2024-05-06 20:26] LABS: Glucose,Whole Blood 178 mg/dL (70-110)
--- NOTE | 2024-05-07 00:05 | P.PN ---
Subjective Patient seen and evalauted at bedside. Patient complaining of chest pain and difficulty breathing. Objective - Vital Signs Vital signs: Vital Signs Temp 98.8 F 05/06/24 20:00 Pulse 60 05/06/24 20:00 Resp 18 05/06/24 20:00 BP 122/59 05/06/24 20:00 Pulse Ox 92 L 05/06/24 20:00 FiO2 Intake & Output 05/06/24 05/06/24 05/07/24 06:59 18:59 06:59 Intake Total 118 354 Output Total 300 Balance 118 54 Weight 79 kg Intake: Oral 118 354 Output: Urine 300 Other: Voiding Method Urinal Urinal Urinal # Voids 1 1 1 - Exam gen: nad cv: rrr pul: non labored breathing currently, patient family states pain with deep breathing thorax: tender to palpation, no step offs, no parodoxical motion abd: soft, non tender to palpation, no guarding or rebound tenderness - Labs CBC & Chem 7: 05/06/24 07:55 05/04/24 13:40 Labs: Abnormal Lab Results - Last 24 Hours (Table) 05/06/24 05/06/24 05/06/24 Range/Units 06:20 07:55 11:15 RBC 3.37 L (4.30-5.90) m/uL Hgb 11.5 L (13.0-17.5) gm/dL Hct 35.3 L (39.0-53.0) % MCV 104.8 H (80.0-100.0) fL POC Glucose (mg/dL) 207 H 255 H (70-110) mg/dL 05/06/24 05/06/24 Range/Units 16:34 20:25 RBC (4.30-5.90) m/uL Hgb (13.0-17.5) gm/dL Hct (39.0-53.0) % MCV (80.0-100.0) fL POC Glucose (mg/dL) 226 H 178 H (70-110) mg/dL Assessment and Plan Assessment: 78 yo male w/ right sided rib fractures -will attempt further pain control, will likely need epidural -continue incentive spirometer use Time with Patient: Less than 30
[2024-05-07 06:02] LABS: Glucose,Whole Blood 290 mg/dL (70-110)
--- NOTE | 2024-05-07 08:16 | XR ---
EXAMINATION TYPE: XR chest 1V portable DATE OF EXAM: 05/07/2024 HISTORY: Shortness of breath. COMPARISON: 05/05/2024 TECHNIQUE: Single view of the chest is submitted. FINDINGS: Demonstrated are scattered senescent parenchymal change. Perihilar increased density may reflect atelectasis or contusive change. Multiple right-sided rib fra ctures redemonstrated. Small right effusion versus pneumothorax. No pneumothorax present. The heart is stable. Hilar and mediastinal structures are within normal limits. Degenerative changes are seen of the dorsal spine. IMPRESSION: 1. Perihilar increased density may reflect atelectasis or contusive change. Multiple right-sided rib fractures redemonstrated. Small right effusion versus pneumothorax. No pneumothorax present.
--- NOTE | 2024-05-07 11:00 | P.PN ---
Subjective Progress Note Date: 05/07/24 Patient is a 78-year-old white male with past medical history significant for diabetes mellitus, hyperlipidemia, hypertension, CAD with previous PCI/stenting, and atrial fibrillation anticoagulated on Xarelto. Patient presented to the ED yesterday after falling approximately 2 feet from ladder. He was changing a light fixture. Does report head trauma. There is a laceration to left eyebrow. Does take Xarelto on outpatient basis. CT of the brain and C-spine does not show any intracranial hemorrhage or mass effect. No C-spine fracture or subluxation. Also, reports some right-sided chest pain. CT of chest, abdomen, pelvis demonstrated acute right-sided rib fractures with mild displacement of r ibs 3 through 9, and small right-sided effusion, possible hemothorax. No appreciable pneumothoraces. The fluid collection is small, doubt the patient would benefit from thoracotomy tube. Cardiothoracic consult was also placed. Patient is currently in the emergency department, room 2. He is on room air. SpO2 is 93%. No signs of respiratory distress. We will need to get him an incentive spirometer. Continues to have right-sided rib pain. No crepitus or subcutaneous emphysema. There is a lidocaine patch on. Patient also receiving as needed [place]'s. Reports that his pain is fairly well-managed at this time. Patient was today on 05/06/2024, on room air with O2 sats of 96%, does not seem to be in any distress, patient seems to be relatively controlled, being considered for epidural injections for his severe pain. In the meantime the patient is receiving [place]. And morphine IV push as needed. Patient is being followed by pain team for his pain and he is also on lidocaine patch applied daily. Labs WBC count is 8.6 hemoglobin 11.5. Chest x-ray from admission was reviewed, follow-up chest x-ray to be done in a.m. was ordered. The patient is seen today May 07, 2024 in follow-up on the regular medical floor. He is currently resting fairly comfortably in bed. Awake and alert in no acute distress. He is maintaining O2 saturations in the 90s on room air. He needs increased encouragement regarding the use of the incentive spirometer and cough and deep breathing exercises. He is working with physical therapy. Glucose 290. X-ray reveals perihilar increased density reflecting atelectasis or contusive change. Multiple right-sided rib fractures redemonstrated. Small right effusion. No evidence of pneumothorax. Lido Cane patch in place. Plans for epidural injection for pain control. Xarelto is on hold. Objective - Vital Signs Vital signs: Vital Signs Temp 98.8 F 05/07/24 08:26 Pulse 61 05/07/24 08:26 Resp 18 05/07/24 08:26 BP 137/72 05/07/24 08:26 Pulse Ox 93 L 05/07/24 08:26 FiO2 Intake & Output 05/06/24 05/07/24 05/07/24 18:59 06:59 18:59 Intake Total 354 Output Total 300 Balance 54 Weight 77.5 kg Intake: Oral 354 Output: Urine 300 Other: Voiding Method Urinal Urinal Urinal # Voids 1 1 - Exam GENERAL EXAM: Alert, pleasant 78-year-old male, comfortable in no apparent distress. On room air HEAD: Normocephalic and left frontal eyebrow trauma/ecchymosi s/laceration/periorbital swelling EYES: Normal reaction of pupils, equal size. NOSE: Clear with pink turbinates. THROAT: No erythema or exudates. NECK: No masses, no JVD. CHEST: No chest wall deformity. Grimacing with palpation of right anterior thorax. No gross deformities or crepitus. No subcutaneous emphysema. LUNGS: Equal air entry with no crackles, wheeze, rhonchi or dullness. On room air. No conversational dyspnea or accessory muscle use.. CVS: S1 and S2 normal with no audible murmur, regular rhythm. No extra heart sounds ABDOMEN: No hepatosplenomegaly, active bowel sounds, no guarding or rigidity. SKIN: Right valentine abrasion. Right elbow skin tear. CENTRAL NERVOUS SYSTEM: No focal deficits, tone is normal in all 4 extremities. EXTREMITIES: There is no peripheral edema, clubbing, or cyanosis. Peripheral pulses are intact. - Labs CBC & Chem 7: 05/06/24 07:55 05/04/24 13:40 Labs: Abnormal Lab Results - Last 24 Hours (Table) 05/06/24 05/06/24 05/06/24 Range/Units 11:15 16:34 20:25 POC Glucose (mg/dL) 255 H 226 H 178 H (70-110) mg/dL 05/07/24 Range/Units 06:00 POC Glucose (mg/dL) 290 H (70-110) mg/dL Assessment and Plan Assessment: Fall from ladder, sustaining right-sided mildly displaced rib fractures 3 through 9, with an associated small right-sided pleural effusion, possible traumatic hemothorax. No appreciable pneumothoraces Head trauma, sustaining left eyebrow laceration Acute kidney injury History of diabetes mellitus History of hyperlipidemia History of hypertension. History of coronary artery disease with previous PCI/stenting History of paroxysmal atrial fibrillation, chronically anticoagulated on Xarelto Indeterminate pancreas head and tail lesions, possible representing cyst per CT report. Can be further evaluated in an outpatient setting by his primary care physician Plan: The patient was seen and evaluated Chest x-ray and medications reviewed Plan is for epidural injection today for pain control Xarelto remains on hold Encouraged the increased use of the incentive spirometer Working with physical therapy I have personally seen and examined the patient, performed the documentation and the assessment and plan as written. Number of minutes spent on the visit: 10.
--- NOTE | 2024-05-07 11:21 | P.PN ---
Subjective Progress Note Date: 05/07/24 78-year-old man presented emergency department with complaints of having a mechanical fall. He has a past medical history significant for diabetes mellitus, hyperlipidemia, hypertension, CAD with previous PCI/LAD stenting, and atrial fibrillation anticoagulated on Xarelto. Patient was on a ladder when he lost his balance and fell on his right side. On presentation had a laceration to the left eyebrow which the patient reports was possibly caused by the ladder falling and striking his head. He reported to the emergency department that he had pain in his head and ribs, however no neck, back or abdominal pain. He denied any loss of consciousness. Patient's blood pressure 151/69, heart rate of 52, respiratory rate of 18 while having oxygen saturation 92% on room air. He takes Xarelto at home which has since been discontinued. Pulmonology has been consulted and seen the patient, reporting that he is show no signs of respiratory distress. He has been given incentive spirometer and has been using it consistently. We have been consulted to continue medical management of this patient. Initial lab work done in the ER showed WBCs 7.0, Hgb 12.1, Hct 37.8, Mcv 103.9, PT 15.1, INR 1.5, sodium 135, BUN 27, creatinine 1.31, glucose 234, AST 171, ALT 165, alkaline phosphatase 130 EKG done in the ER showed heart rate of 60, no ST segment elevation or depression seen, no T-wave inversions seen. Chest x-ray done in the ER showed low lung volumes with generalized hazy appearance which could represent atelectasis versus pulmonary edema which should be correlated with a serum BNP (which has been ordered) Pelvis x-ray done in ED showed no acute osseous pathology CT chest/abdomen/pelvis showed acute rib fractures with mild displacement of ribs 3 through 9 with suspected hemothorax versus effusion peripherally, spine appears to be intact for fracture, intermediate pancreatic head and tail process lesions possibly representing cyst (further workup recommended with MRCP with IV contrast), cardiomegaly with moderate to severe coronary artery atherosclerosis, moderate aortic valve calcifications CT head/cervical spine done showed no acute intracranial process, no evidence of cervical spine fracture, moderate multilevel degenerative disc disease 05/06 - Patient seen at bedside. Currently states he is feeling well, with discomfort due to his ribs. Pain has been controlled through pain management stating that the pain is alleviated by medications (MS 4 mg IVP every 4 hours, [place] 5/325 mg every 6 hours, Robaxin, Tylenol 650 mg every 6 hours). Per pain management's recommendation, [place] will be discontinued and replaced with oxycodone 5 mg every 4 hours as needed. Patient states he continues to have discomfort on his right side, however has been trying to move more and is highly motivated to get moving. He he continues to use his incentive spirometer. Added Protonix 40 mg daily for additional GI prophylaxis. Patient said he was to be considered for epidural injections due to the severe pain. Will continue to follow and monitor as needed. 05/07 - Patient seen at bedside today. Has continued pain and discomfort. He has been followed by pulmonology, pain management team, as well as orthopedic surgery. Epidural being considered, pain is being controlled by the pain management team with morphine IV push as needed as well as lidocaine patches applied daily. Continued use of incentive spirometry has been continually recommended, the patient should ambulate as he tolerates. Repeat chest x-ray done this morning to further evaluate for potential hemothorax from chest wall trauma. Physical therapy and Occupational Therapy both been consulted, hoping to have them see the patient today. Orthopedic surgery still considering having the patient receive an epidural for his increasing discomfort. Overnight patient's blood pressure was 101/61, heart rate of 71, respiratory rate of 17 with an oxygen saturation of 90% on room air. Patient still mentions that he has not had a bowel movement for a few days, on top of the nightly senna and the MiraLAX as needed 20 g of p.o. twice daily of lactulose has been added in an effort to get the patient's bowels moving. Bowel sounds are heard in all 4 quadrants, additionally patient has been moved into the chair and will work with occupational therapy and physical therapy which should help the bowels move. REVIEW OF SYSTEMS: CONSTITUTIONAL: No fever, no malaise, no fatigue. HEENT: No recent visual problems or hearing problems. Denied any sore throat. CARDIOVASCULAR: No chest pain, orthopnea, PND, no palpitations, no syncope. PULMONARY: No shortness of breath, no cough, no hemoptysis. GASTROINTESTINAL: No diarrhea, no nausea, no vomiting, no abdominal pain. NEUROLOGICAL: No headaches, no weakness, no numbness. HEMATOLOGICAL: Denies any bleeding or petechiae. GENITOURINARY: Denies any burning micturition, frequency, or urgency. MUSCULOSKELETAL/RHEUMATOLOGICAL: Denies any joint pain, swelling, or any muscle pain. ENDOCRINE: Denies any polyuria or polydipsia. The rest of the 14-point review of systems is negative. PHYSICAL EXAMINATION: GENERAL: The patient is alert and oriented x3, not in any acute distress. Well developed, well nourished. Discomfort noted due to pain from his ribs. HEENT: Pupils are round and equally reacting to light. EOMI. No scleral icterus. No conjunctival pallor. Normocephalic, atraumatic. No pharyngeal erythema. No thyromegaly. Laceration of the left eyebrow. CARDIOVASCULAR: S1 and S2 present. No murmurs, rubs, or gallops. PULMONARY: Chest is clear to auscultation, no wheezing or crackles. ABDOMEN: Soft, nontender, nondistended, normoactive bowel sounds. No palpable organomegaly. Mild tenderness of the right upper abdomen. MUSCULOSKELETAL: No joint swelling or deformity. Chest wall tenderness on the right side. EXTREMITIES: No cyanosis, clubbing, or pedal edema. NEUROLOGICAL: Gross neurological examination did not reveal any focal deficits. SKIN: No rashes. Open scrape on his right elbow and his right knee, both cared for and covered with bandages. Assessment and plan # Mildly displaced rib fractures of ribs 3 through 9 secondary to mechanical fall CT chest/abdomen/pelvis showed acute rib fractures with mild displacement of ribs 3 through 9 Patient had mechanical fall from a ladder Patient has had lidocaine patches placed Patient has [place] 5325 to control his pain; patient states his pain is well- controlled at this time; has since been discontinued Patient has morphine 2 mg and/or 4 mg every 4 hours as needed and Percocet 5325 every 4 hours as needed available to control the pain Orthopedic surgery considering epidural tap control is continuing pain # Small right-sided pleural effusion, possible traumatic hemothorax secondary to mechanical fall CT chest/abdomen/pelvis showed that with the rib fractures and mild displacement of ribs 3 through 9 there is suspected hemothorax versus possible pleural effusion Patient is currently on room air, breathing comfortably while saturating in the low to mid 90s Repeat x-ray this morning (05/07) to continue to monitor and evaluate # Laceration to left eyebrow secondary to head trauma as a result of mechanical fall Patient a laceration of his left eyebrow noted on presentation to the emergency department Laceration was repaired in the emergency department, was reported as 3 cm # Abrasions on right elbow, right knee and right heel secondary to fall Controlled with bandages Wound care consulted to help monitor and care for these wounds Patient has MiraLAX and lactulose 20 g twice daily as needed as needed and will take senna nightly for constipation due to pain medication. GI prophylaxis: Protonix 40 mg daily Continue to monitor vital signs, monitor CBC, monitor CMP, continue telemetry monitoring Labs and medication were reviewed. Continue with symptomatic treatment. Resume home medication as able. Further recommendations as per clinical course of the patient. Thank you for this consult we will continue to manage and follow medically as needed. Dictation was produced using [employer] dictation software. please excuse any gra mmatical, word or spelling errors. Dr. Whitley MD I have performed a history and physical examination and medical decision making of this patient, discussed the same with the the resident, and agree with the assessment and plan as written. I performed brief physical exam. Objective - Vital Signs Vital signs: Vital Signs Temp 97.7 F 05/07/24 01:47 Pulse 71 05/07/24 01:47 Resp 17 05/07/24 01:47 BP 101/61 05/07/24 01:47 Pulse Ox 92 L 05/07/24 01:47 FiO2 Intake & Output 05/06/24 05/07/24 05/07/24 18:59 06:59 18:59 Intake Total 354 Output Total 300 Balance 54 Weight 77.5 kg Intake: Oral 354 Output: Urine 300 Other: Voiding Method Urinal Urinal # Voids 1 1 - Labs CBC & Chem 7: 05/06/24 07:55 05/04/24 13:40 Labs: Abnormal Lab Results - Last 24 Hours (Table) 05/06/24 05/06/24 05/06/24 Range/Units 07:55 11:15 16:34 RBC 3.37 L (4.30-5.90) m/uL Hgb 11.5 L (13.0-17.5) gm/dL Hct 35.3 L (39.0-53.0) % MCV 104.8 H (80.0-100.0) fL POC Glucose (mg/dL) 255 H 226 H (70-110) mg/dL 05/06/24 05/07/24 Range/Units 20:25 06:00 RBC (4.30-5.90) m/uL Hgb (13.0-17.5) gm/dL Hct (39.0-53.0) % MCV (80.0-100.0) fL POC Glucose (mg/dL) 178 H 290 H (70-110) mg/dL
[2024-05-07 12:01] LABS: Glucose,Whole Blood 254 mg/dL (70-110)
--- NOTE | 2024-05-07 16:19 | P.PN ---
Subjective patient seen and evaluated bedside. Patient resting comfortably still minimal effort on incentive spirometer. Still complaining of chest pain despite adding medications Objective - Vital Signs Vital signs: Vital Signs Temp 97.8 F 05/07/24 13:55 Pulse 65 05/07/24 13:55 Resp 17 05/07/24 13:55 BP 141/67 05/07/24 13:55 Pulse Ox 95 05/07/24 13:55 FiO2 Intake & Output 05/06/24 05/07/24 05/07/24 18:59 06:59 18:59 Intake Total 354 Output Total 300 Balance 54 Weight 77.5 kg Intake: Oral 354 Output: Urine 300 Other: Voiding Method Urinal Urinal Urinal # Voids 1 1 - Exam general he distress Cardiovascular regular in rhythm Pulmonary mild labored breathing with minimal effort Abdomen is soft, nontender, nondistended no guarding rebound tenderness - Labs CBC & Chem 7: 05/06/24 07:55 05/04/24 13:40 Labs: Abnormal Lab Results - Last 24 Hours (Table) 05/06/24 05/06/24 05/07/24 Range/Units 16:34 20:25 06:00 POC Glucose (mg/dL) 226 H 178 H 290 H (70-110) mg/dL 05/07/24 Range/Units 12:00 POC Glucose (mg/dL) 254 H (70-110) mg/dL Assessment and Plan Assessment: 78-year-old male status post right-sided rib fractures Chest x-ray reveals developing pneumonia Despite adding pain medication patient has still minimal effort Epidural ordered If this does not work possibly transfer to a facility that does rib plating as a last ditch effort Time with Patient: Less than 30
[2024-05-07] MEDS ORDERED: NALOXONE 0.4 MG/ML 1 ML VIAL IV PRN (16:45)
--- NOTE | 2024-05-07 17:06 | P.PCN ---
Description of Procedure: Preprocedure diagnosis. Multiple rib fracture pain. Postprocedure diagnosis. As above. Procedure done. Placement of epidural catheter at T6-7 space and starting continuous epidural infusion. Anesthesia. Local infiltration with 5 mL of 1% lidocaine. Continuous pulse ox blood pressure was monitored. Continuous verbal communication was maintained with the patient. Blood loss. None. Indication. Multiple rib fracture. Discussed with the patient in details about the epidural placement procedure, alternatives, possible complications which could be infection, bleeding, spinal cord compression, nerve damage, dural puncture and headache, all of which could be permanent. Patient understands and all questions were answered. Procedure note. After getting consent, patient in sitting position. After skin infiltration with 1% lidocaine 5 mL, an 18-gauge Touhy needle was introduced at T 6-7 space with loss of resistance technique using a glass syringe filled with air. Negative CSF, negative blood, negative paresthesia. Catheter was introduced through the needle. Catheter marker was at 10-1/2 cm at skin. Test dose with 4 cc of 1.5% lidocaine with epi. Negative signs and symptoms like numbness and tingling in lips and tongue ringing in the ear or legs getting numb suddenly. Blood pressure, pulse rate were stable without any change.. Catheter was taped. Disposition. Patient tolerated the procedure well. No complication. Instructed not to start any blood thinning medications.
[2024-05-07 17:10] LABS: Glucose,Whole Blood 451 mg/dL (70-110)
[2024-05-07 21:44] LABS: Glucose,Whole Blood 202 mg/dL (70-110)
[2024-05-08] MEDS: ROPIVACAINE 250 MG, HYDROMORPHONE (PF) 5 MG in SODIUM CHLORIDE 0.9% 200 ML EPIDURAL PRN (01:48)
[2024-05-08 06:27] LABS: Glucose,Whole Blood 209 mg/dL (70-110)
--- NOTE | 2024-05-08 09:04 | P.PN ---
Progress Note - Text Epidural rate at 5 mL/h. Adequate analgesia. No complication from epidural catheter placement.
[2024-05-08] MEDS: LACTULOSE 20 GM/30 ML CUP PO PRN (11:18)
--- NOTE | 2024-05-08 11:24 | P.PN ---
Subjective Progress Note Date: 05/08/24 Patient is a 78-year-old white male with past medical history significant for diabetes mellitus, hyperlipidemia, hypertension, CAD with previous PCI/stenting, and atrial fibrillation anticoagulated on Xarelto. Patient presented to the ED yesterday after falling approximately 2 feet from ladder. He was changing a light fixture. Does report head trauma. There is a laceration to left eyebrow. Does take Xarelto on outpatient basis. CT of the brain and C-spine does not show any intracranial hemorrhage or mass effect. No C-spine fracture or subluxation. Also, reports some right-sided chest pain. CT of chest, abdomen, pelvis demonstrated acute right-sided rib fractures with mild displacement of r ibs 3 through 9, and small right-sided effusion, possible hemothorax. No appreciable pneumothoraces. The fluid collection is small, doubt the patient would benefit from thoracotomy tube. Cardiothoracic consult was also placed. Patient is currently in the emergency department, room 2. He is on room air. SpO2 is 93%. No signs of respiratory distress. We will need to get him an incentive spirometer. Continues to have right-sided rib pain. No crepitus or subcutaneous emphysema. There is a lidocaine patch on. Patient also receiving as needed [place]'s. Reports that his pain is fairly well-managed at this time. Patient was today on 05/06/2024, on room air with O2 sats of 96%, does not seem to be in any distress, patient seems to be relatively controlled, being considered for epidural injections for his severe pain. In the meantime the patient is receiving [place]. And morphine IV push as needed. Patient is being followed by pain team for his pain and he is also on lidocaine patch applied daily. Labs WBC count is 8.6 hemoglobin 11.5. Chest x-ray from admission was reviewed, follow-up chest x-ray to be done in a.m. was ordered. The patient is seen today May 07, 2024 in follow-up on the regular medical floor. He is currently resting fairly comfortably in bed. Awake and alert in no acute distress. He is maintaining O2 saturations in the 90s on room air. He needs increased encouragement regarding the use of the incentive spirometer and cough and deep breathing exercises. He is working with physical therapy. Glucose 290. X-ray reveals perihilar increased density reflecting atelectasis or contusive change. Multiple right-sided rib fractures redemonstrated. Small right effusion. No evidence of pneumothorax. Lido Cane patch in place. Plans for epidural injection for pain control. Xarelto is on hold. The patient is seen today May 08, 2024 in follow-up on the regular medical floor. He is awake and alert in no acute distress. He did undergo an epicardial catheter placement for pain management that seems to be helping significantly. He is doing better on his incentive spirometer. He is a bit more mobile. Less discomfort with inhalation. Glucose 209. Lidocaine patch remains in place. Objective - Vital Signs Vital signs: Vital Signs Temp 98.2 F 05/08/24 07:40 Pulse 66 05/08/24 07:40 Resp 19 05/08/24 07:40 BP 156/75 05/08/24 07:40 Pulse Ox 95 05/08/24 07:40 FiO2 Intake & Output 05/07/24 05/08/24 05/08/24 18:59 06:59 18:59 Output Total 600 Balance -600 Weight 77.4 kg Output: Urine 600 Other: Voiding Method Urinal # Voids 4 0 - Exam GENERAL EXAM: Alert, 78-year-old male, more comfortable today, in no apparent distress. On room air HEAD: Normocephalic and left frontal eyebrow trauma/ecchymosis/laceration/periorbital swelling EYES: Normal reaction of pupils, equal size. NOSE: Clear with pink turbinates. THROAT: No erythema or exudates. NECK: No masses, no JVD. CHEST: No chest wall deformity. Grimacing with palpation of right anterior thorax. No gross deformities or crepitus. No subcutaneous emphysema. LUNGS: Equal air entry with no crackles, wheeze, rhonchi or dullness. On room air. No conversational dyspnea or accessory muscle use.. CVS: S1 and S2 normal with no audible murmur, regular rhythm. No extra heart sounds ABDOMEN: No hepatosplenomegaly, active bowel sounds, no guarding or rigidity. SKIN: Right valentine abrasion. Right elbow skin tear. CENTRAL NERVOUS SYSTEM: No focal deficits, tone is normal in all 4 extremities. EXTREMITIES: There is no peripheral edema, clubbing, or cyanosis. Peripheral pulses are intact. - Labs CBC & Chem 7: 05/06/24 07:55 05/04/24 13:40 Labs: Abnormal Lab Results - Last 24 Hours (Table) 05/07/24 05/07/24 05/07/24 Range/Units 12:00 17:08 21:43 POC Glucose (mg/dL) 254 H 451 H 202 H (70-110) mg/dL 05/08/24 Range/Units 06:26 POC Glucose (mg/dL) 209 H (70-110) mg/dL Assessment and Plan Assessment: Fall from ladder, sustaining right-sided mildly displaced rib fractures 3 through 9, with an associated small right-sided pleural effusion, possible tr aumatic hemothorax. No appreciable pneumothoraces Head trauma, sustaining left eyebrow laceration Acute kidney injury History of diabetes mellitus History of hyperlipidemia History of hypertension. History of coronary artery disease with previous PCI/stenting History of paroxysmal atrial fibrillation, chronically anticoagulated on Xarelto Indeterminate pancreas head and tail lesions, possible representing cyst per CT report. Can be further evaluated in an outpatient setting by his primary care physician Plan: The patient was seen and evaluated Medications reviewed Epidural catheter placed yesterday for pain management Encouraged the increased use of the incentive spirometer Increase his activity as tolerated Follow-up chest x-ray in a.m. I have personally seen and examined the patient, performed the documentation and the assessment and plan as written. Number of minutes spent on the visit: 10.
--- NOTE | 2024-05-08 11:29 | P.PN ---
Subjective Progress Note Date: 05/08/24 78-year-old man presented emergency department with complaints of having a mechanical fall. He has a past medical history significant for diabetes mellitus, hyperlipidemia, hypertension, CAD with previous PCI/LAD stenting, and atrial fibrillation anticoagulated on Xarelto. Patient was on a ladder when he lost his balance and fell on his right side. On presentation had a laceration to the left eyebrow which the patient reports was possibly caused by the ladder falling and striking his head. He reported to the emergency department that he had pain in his head and ribs, however no neck, back or abdominal pain. He denied any loss of consciousness. Patient's blood pressure 151/69, heart rate of 52, respiratory rate of 18 while having oxygen saturation 92% on room air. He takes Xarelto at home which has since been discontinued. Pulmonology has been consulted and seen the patient, reporting that he is show no signs of respiratory distress. He has been given incentive spirometer and has been using it consistently. We have been consulted to continue medical management of this patient. Initial lab work done in the ER showed WBCs 7.0, Hgb 12.1, Hct 37.8, Mcv 103.9, PT 15.1, INR 1.5, sodium 135, BUN 27, creatinine 1.31, glucose 234, AST 171, ALT 165, alkaline phosphatase 130 EKG done in the ER showed heart rate of 60, no ST segment elevation or depression seen, no T-wave inversions seen. Chest x-ray done in the ER showed low lung volumes with generalized hazy appearance which could represent atelectasis versus pulmonary edema which should be correlated with a serum BNP (which has been ordered) Pelvis x-ray done in ED showed no acute osseous pathology CT chest/abdomen/pelvis showed acute rib fractures with mild displacement of ribs 3 through 9 with suspected hemothorax versus effusion peripherally, spine appears to be intact for fracture, intermediate pancreatic head and tail process lesions possibly representing cyst (further workup recommended with MRCP with IV contrast), cardiomegaly with moderate to severe coronary artery atherosclerosis, moderate aortic valve calcifications CT head/cervical spine done showed no acute intracranial process, no evidence of cervical spine fracture, moderate multilevel degenerative disc disease 05/06 - Patient seen at bedside. Currently states he is feeling well, with discomfort due to his ribs. Pain has been controlled through pain management stating that the pain is alleviated by medications (MS 4 mg IVP every 4 hours, Ray[place] 5/325 mg every 6 hours, Robaxin, Tylenol 650 mg every 6 hours). Per pain management's recommendation, Ray[place] will be discontinued and replaced with oxycodone 5 mg every 4 hours as needed. Patient states he continues to have discomfort on his right side, however has been trying to move more and is highly motivated to get moving. He he continues to use his incentive spirometer. Added Protonix 40 mg daily for additional GI prophylaxis. Patient said he was to be considered for epidural injections due to the severe pain. Will continue to follow and monitor as needed. 05/07 - Patient seen at bedside today. Has continued pain and discomfort. He has been followed by pulmonology, pain management team, as well as orthopedic surgery. Epidural being considered, pain is being controlled by the pain management team with morphine IV push as needed as well as lidocaine patches applied daily. Continued use of incentive spirometry has been continually recommended, the patient should ambulate as he tolerates. Repeat chest x-ray done this morning to further evaluate for potential hemothorax from chest wall trauma. Physical therapy and Occupational Therapy both been consulted, hoping to have them see the patient today. Orthopedic surgery still considering having the patient receive an epidural for his increasing discomfort. Overnight patient's blood pressure was 101/61, heart rate of 71, respiratory rate of 17 with an oxygen saturation of 90% on room air. Patient still mentions that he has not had a bowel movement for a few days, on top of the nightly senna and the MiraLAX as needed 20 g of p.o. twice daily of lactulose has been added in an effort to get the patient's bowels moving. Bowel sounds are heard in all 4 quadrants, additionally patient has been moved into the chair and will work with occupational therapy and physical therapy which should help the bowels move. 05/08 - Patient seen at beside today. He continues to have discomfort despite additional medications added to help control the pain. Patient received an epidural of 250 mg ropivacaine and 5 mg hydromorphone yesterday in the afternoon, continues to have 4 mg of morphine, 4% lidocaine patch, Tylenol, Perc ocet available to him as needed however he has reported continued pain with those medications. Per surgery's recommendations, patient underwent his epidural as a last ditch effort to control the patient's pain however they are stating that if this does not work it is possible he will need to be transferred to a facility that does rib plating as a last ditch effort. Per pulmonology's recommendation, the patient is saturating in the mid 90s on room air, however needs increased encouragement regarding the use of an incentive spirometry with coughing and deep breathing exercises. Chest x-ray completed yesterday showed increased density reflecting atelectasis or contusive change as well as multiple right-sided rib fractures without evidence of pneumothorax. Patient is noted to have increasing tremors of his hands, his states that this is nothing new however more pronounced today she is unconcerned as it is not too different from the normal. Additionally the patient has still not had a bowel movement, however continues to have good bowel sounds. MiraLAX, senna, lactulose all charla ilable in the effort to avoid constipation in this patient. Will continue to work with physical therapy as tolerated. REVIEW OF SYSTEMS: CONSTITUTIONAL: No fever, no malaise, no fatigue. HEENT: No recent visual problems or hearing problems. Denied any sore throat. CARDIOVASCULAR: No chest pain, orthopnea, PND, no palpitations, no syncope. PULMONARY: No shortness of breath, no cough, no hemoptysis. GASTROINTESTINAL: No diarrhea, no nausea, no vomiting, no abdominal pain. NEUROLOGICAL: No headaches, no weakness, no numbness. HEMATOLOGICAL: Denies any bleeding or petechiae. GENITOURINARY: Denies any burning micturition, frequency, or urgency. MUSCULOSKELETAL/RHEUMATOLOGICAL: Denies any joint pain, swelling, or any muscle pain. ENDOCRINE: Denies any polyuria or polydipsia. The rest of the 14-point review of systems is negative. PHYSICAL EXAMINATION: GENERAL: The patient is alert and oriented x3, not in any acute distress. Well developed, well nourished. Discomfort noted due to pain from his ribs. HEENT: Pupils are round and equally reacting to light. EOMI. No scleral icterus. No conjunctival pallor. Normocephalic, atraumatic. No pharyngeal erythema. No thyromegaly. Laceration of the left eyebrow. CARDIOVASCULAR: S1 and S2 present. No murmurs, rubs, or gallops. PULMONARY: Chest is clear to auscultation, no wheezing or crackles. ABDOMEN: Soft, nontender, nondistended, normoactive bowel sounds. No palpable organomegaly. Mild tenderness of the right upper abdomen. MUSCULOSKELETAL: No joint swelling or deformity. Chest wall tenderness on the right side. EXTREMITIES: No cyanosis, clubbing, or pedal edema. NEUROLOGICAL: Gross neurological examination did not reveal any focal deficits. SKIN: No rashes. Open scrape on his right elbow and his right knee, both cared for and covered with bandages. Assessment and plan # Mildly displaced rib fractures of ribs 3 through 9 secondary to mechanical fall CT chest/abdomen/pelvis showed acute rib fractures with mild displacement of ribs 3 through 9 Patient had mechanical fall from a ladder Patient has had lidocaine patches placed Patient has [place] 5325 to control his pain; patient states his pain is well- controlled at this time; has since been discontinued Patient has morphine 2 mg and/or 4 mg every 4 hours as needed and Percocet 5325 every 4 hours as needed available to control the pain Orthopedic surgery considering epidural to control is continuing pain Patient received epidural of 250 mg ropivacaine and 5 mg hydromorphone # Small right-sided pleural effusion, possible traumatic hemothorax secondary to mechanical fall CT chest/abdomen/pelvis showed that with the rib fractures and mild displacement of ribs 3 through 9 there is suspected hemothorax versus possible pleural effusion Patient is currently on room air, breathing comfortably while saturating in the low to mid 90s Repeat x-ray this morning (05/07) to continue to monitor and evaluate Repeat x-ray morning of 05/08 showed increased perihilar density may reflect atelectasis or contusive change. Multiple right-sided rib fractures. # Laceration to left eyebrow secondary to head trauma as a result of mechanical fall Patient a laceration of his left eyebrow noted on presentation to the emergency department Laceration was repaired in the emergency department, was reported as 3 cm # Abrasions on right elbow, right knee and right heel secondary to fall Controlled with bandages Wound care consulted to help monitor and care for these wounds Patient has MiraLAX and lactulose 20 g twice daily as needed as needed and will take senna nightly for constipation due to pain medication. GI prophylaxis: Protonix 40 mg daily DVT prophylaxis: Currently on hold Continue to monitor vital signs, monitor CBC, monitor CMP, continue telemetry monitoring Labs and medication were reviewed. Continue with symptomatic treatment. Resume home medication as able. Further recommendations as per clinical course of the patient. Thank you for this consult we will continue to manage and follow medically as needed. Dictation was produced using [employer] dictation software. please excuse any grammatical, word or spelling errors. Dr. Whitley MD I have performed a history and physical examination and medical decision making of this patient, discussed the same with the the resident, and agree with the assessment and plan as written. I performed brief physical exam. Objective - Vital Signs Vital signs: Vital Signs Temp 98.5 F 05/08/24 01:17 Pulse 59 L 05/08/24 01:17 Resp 17 05/08/24 01:17 BP 180/77 05/08/24 01:17 Pulse Ox 97 05/08/24 01:17 FiO2 Intake & Output 05/07/24 05/08/24 05/08/24 18:59 06:59 18:59 Output Total 600 Balance -600 Weight 77.4 kg Output: Urine 600 Other: Voiding Method Urinal # Voids 4 0 - Labs CBC & Chem 7: 05/06/24 07:55 05/04/24 13:40 Labs: Abnormal Lab Results - Last 24 Hours (Table) 05/07/24 05/07/24 05/07/24 Range/Units 12:00 17:08 21:43 POC Glucose (mg/dL) 254 H 451 H 202 H (70-110) mg/dL 05/08/24 Range/Units 06:26 POC Glucose (mg/dL) 209 H (70-110) mg/dL
[2024-05-08 12:09] LABS: Glucose,Whole Blood 283 mg/dL (70-110)
[2024-05-08] MEDS: ACETAMINOPHEN TAB 325 MG TAB PO PRN (14:11)
[2024-05-08 16:43] LABS: Glucose,Whole Blood 231 mg/dL (70-110)
--- NOTE | 2024-05-08 18:08 | P.PN ---
Progress Note - Text Progress Note Date: 05/08/24 GRAEME. Patient is in no acute distress VSS General-NAD CVS-RRR Lungs-NLB Abdomen-soft, NTND 78-year-old male with right-sided rib fractures Chest x-ray reveals developing pneumonia, continue to monitor Pain Control Pulmonary Toilet -OOB -PT/OT Camilo Dorman [facility] [phone]
[2024-05-08 21:03] LABS: Glucose,Whole Blood 200 mg/dL (70-110)
[2024-05-09 06:05] LABS: Glucose,Whole Blood 301 mg/dL (70-110)
--- NOTE | 2024-05-09 09:21 | P.PN ---
Progress Note - Text Progress Note Date: 05/09/24 GRAEME. Patient is in no acute distress VSS General-NAD CVS-RRR Lungs-NLB Abdomen-soft, NTND 78-year-old male with right-sided rib fractures Chest x-ray reveals developing pneumonia, continue to monitor Pain Control Pulmonary Toilet -OOB -PT/OT Camilo Dorman [facility] [phone]
--- NOTE | 2024-05-09 09:47 | XR ---
EXAMINATION TYPE: XR chest 1V portable DATE OF EXAM: 05/09/2024 Comparison: 05/07/2024 Clinical History: 78-year-old male pain, right-sided Rib fractures Findings: Fractures of the right lateral third, fourth, fifth, sixth, seventh, eighth, and ninth ribs with vari able displacement up to 1 shafts' width. There is a trace right pleural effusion. No appreciable pneu mothorax. Heart mildly enlarged. Mild interstitial prominence. The interstitial changes seen previous ly are improving. Chronic full-thickness rotator cuff tear right shoulder. Impression: 1. Fractures of the right lateral third through ninth ribs. 2. Trace right pleural effusion. 3. There may be mild pulmonary vascular congestion but the overall aeration is improving compared to 05/07/2024. [facility], , 05/09/2024 9:45 AM
--- NOTE | 2024-05-09 09:49 | P.PN ---
Progress Note - Text Adequate analgesia with epidural rate at 3 mL/h. Confusion and delirium has decreased significantly following decreasing the epidural rate. Epidural to continue as deemed by primary care service considering patient was on blood thinner before epidural was put in.
[2024-05-09 10:30] LABS: Basophils % (A) 0 %; Eosinophils # (A) 0.1 k/uL (0-0.7); Eosinophils % (A) 1 %; HCT 36.1 % (39.0-53.0); HGB 11.5 gm/dL (13.0-17.5); Hypochromasia Moderate; Lymphocytes # (A) 1.1 k/uL (1.0-4.8); Lymphocytes % (A) 10 %; MCHC 31.8 g/dL (31.0-37.0); MCV 106.8 fL (80.0-100.0); Macrocytosis Moderate; Mean Platelet Volume 7.1; Monocytes # (A) 1.1 k/uL (0-1.0); Monocytes % (A) 10 %; Neutrophils # (A) 8.7 k/uL (1.3-7.7); Neutrophils % (A) 77 %; Platelet Count 256 k/uL (150-450); RBC 3.38 m/uL (4.30-5.90); RDW 12.7 % (11.5-15.5); WBC 11.3 k/uL (3.8-10.6)
[2024-05-09 10:49] LABS: African American GFR (CKD) 56 (>60 ml/min/1.73 sqM); Anion Gap 12 mmol/L; Blood Urea Nitrogen 43 mg/dL (9-20); Calcium 9.3 mg/dL (8.4-10.2); Carbon Dioxide 20 mmol/L (22-30); Chloride 98 mmol/L (98-107); Glucose 324 mg/dL (74-99); Non-African American GFR(CKD) 48 (>60 ml/min/1.73 sqM); Potassium 5.2 mmol/L (3.5-5.1); Sodium 130 mmol/L (137-145)
[2024-05-09] MEDS: INSULIN DETEMIR (LEVEMIR) 100 UNIT/ML SYR SQ SCH (11:32)
[2024-05-09 11:47] LABS: Glucose,Whole Blood 255 mg/dL (70-110)
--- NOTE | 2024-05-09 12:25 | P.PN ---
Subjective Progress Note Date: 05/09/24 Patient is a 78-year-old white male with past medical history significant for diabetes mellitus, hyperlipidemia, hypertension, CAD with previous PCI/stenting, and atrial fibrillation anticoagulated on Xarelto. Patient presented to the ED yesterday after falling approximately 2 feet from ladder. He was changing a light fixture. Does report head trauma. There is a laceration to left eyebrow. Does take Xarelto on outpatient basis. CT of the brain and C-spine does not show any intracranial hemorrhage or mass effect. No C-spine fracture or subluxation. Also, reports some right-sided chest pain. CT of chest, abdomen, pelvis demonstrated acute right-sided rib fractures with mild displacement of r ibs 3 through 9, and small right-sided effusion, possible hemothorax. No appreciable pneumothoraces. The fluid collection is small, doubt the patient would benefit from thoracotomy tube. Cardiothoracic consult was also placed. Patient is currently in the emergency department, room 2. He is on room air. SpO2 is 93%. No signs of respiratory distress. We will need to get him an incentive spirometer. Continues to have right-sided rib pain. No crepitus or subcutaneous emphysema. There is a lidocaine patch on. Patient also receiving as needed Horton's. Reports that his pain is fairly well-managed at this time. Patient was today on 05/06/2024, on room air with O2 sats of 96%, does not seem to be in any distress, patient seems to be relatively controlled, being considered for epidural injections for his severe pain. In the meantime the patient is receiving Horton. And morphine IV push as needed. Patient is being followed by pain team for his pain and he is also on lidocaine patch applied daily. Labs WBC count is 8.6 hemoglobin 11.5. Chest x-ray from admission was reviewed, follow-up chest x-ray to be done in a.m. was ordered. The patient is seen today May 07, 2024 in follow-up on the regular medical floor. He is currently resting fairly comfortably in bed. Awake and alert in no acute distress. He is maintaining O2 saturations in the 90s on room air. He needs increased encouragement regarding the use of the incentive spirometer and cough and deep breathing exercises. He is working with physical therapy. Glucose 290. X-ray reveals perihilar increased density reflecting atelectasis or contusive change. Multiple right-sided rib fractures redemonstrated. Small right effusion. No evidence of pneumothorax. Lido Cane patch in place. Plans for epidural injection for pain control. Xarelto is on hold. The patient is seen today May 08, 2024 in follow-up on the regular medical floor. He is awake and alert in no acute distress. He did undergo an epicardial catheter placement for pain management that seems to be helping significantly. He is doing better on his incentive spirometer. He is a bit more mobile. Less discomfort with inhalation. Glucose 209. Lidocaine patch remains in place. The patient is seen today May 09, 2024 in follow-up on the regular medical floor. He is awake and alert in no acute distress. He is currently sitting up in a chair at the bedside. Doing quite a bit better. Epidural catheter in place. Lidocaine patch in place. Follow-up chest x-ray again demonstrates fractures of right lateral 3rd through 9th ribs. Trace right pleural effusion. Improved aeration. He is maintaining good O2 saturations in the 90s on room air. He is afebrile. Hemodynamically stable. Working well with the incentive spirometer. White count 11.3. Hemoglobin 11.5. Platelets 256. Sodium 130. Potassium 5.2. Bicarb 20. BUN 43. Creatinine 1.38. Glucose 255. Objective - Vital Signs Vital signs: Vital Signs Temp 97.3 F L 05/09/24 07:26 Pulse 62 05/09/24 07:26 Resp 18 05/09/24 07:26 BP 120/73 05/09/24 07:26 Pulse Ox 97 05/09/24 07:26 FiO2 Intake & Output 05/08/24 05/09/24 05/09/24 18:59 06:59 18:59 Weight 88.5 kg Other: Voiding Method Urinal Toilet - Exam GENERAL EXAM: Alert, pleasant 78-year-old male, sitting up in a chair, more comfortable today, in no apparent distress. On room air HEAD: Normocephalic and left frontal eyebrow trauma/ecchymosis/l aceration/periorbital swelling EYES: Normal reaction of pupils, equal size. NOSE: Clear with pink turbinates. THROAT: No erythema or exudates. NECK: No masses, no JVD. CHEST: No chest wall deformity. Grimacing with palpation of right anterior thorax. No gross deformities or crepitus. No subcutaneous emphysema. LUNGS: Equal air entry with no crackles, wheeze, rhonchi or dullness. On room air. No conversational dyspnea or accessory muscle use.. CVS: S1 and S2 normal with no audible murmur, regular rhythm. No extra heart sounds ABDOMEN: No hepatosplenomegaly, active bowel sounds, no guarding or rigidity. SKIN: Right valentine abrasion. Right elbow skin tear. CENTRAL NERVOUS SYSTEM: No focal deficits, tone is normal in all 4 extremities. EXTREMITIES: There is no peripheral edema, clubbing, or cyanosis. Peripheral pulses are intact. - Labs CBC & Chem 7: 05/09/24 10:17 05/09/24 10:17 Labs: Abnormal Lab Results - Last 24 Hours (Table) 05/08/24 05/08/24 05/09/24 Range/Units 16:40 21:02 06:03 WBC (3.8-10.6) k/uL RBC (4.30-5.90) m/uL Hgb (13.0-17.5) gm/dL Hct (39.0-53.0) % MCV (80.0-100.0) fL Neutrophils # (1.3-7.7) k/uL Monocytes # (0-1.0) k/uL Sodium (137-145) mmol/L Potassium (3.5-5.1) mmol/L Carbon Dioxide (22-30) mmol/L BUN (9-20) mg/dL Creatinine (0.66-1.25) mg/dL Glucose (74-99) mg/dL POC Glucose (mg/dL) 231 H 200 H 301 H (70-110) mg/dL 05/09/24 05/09/24 05/09/24 Range/Units 10:17 10:17 11:44 WBC 11.3 H (3.8-10.6) k/uL RBC 3.38 L (4.30-5.90) m/uL Hgb 11.5 L (13.0-17.5) gm/dL Hct 36.1 L (39.0-53.0) % MCV 106.8 H (80.0-100.0) fL Neutrophils # 8.7 H (1.3-7.7) k/uL Monocytes # 1.1 H (0-1.0) k/uL Sodium 130 L (137-145) mmol/L Potassium 5.2 H (3.5-5.1) mmol/L Carbon Dioxide 20 L (22-30) mmol/L BUN 43 H (9-20) mg/dL Creatinine 1.38 H (0.66-1.25) mg/dL Glucose 324 H (74-99) mg/dL POC Glucose (mg/dL) 255 H (70-110) mg/dL Assessment and Plan Assessment: Fall from ladder, sustaining right-sided mildly displaced rib fractures 3 through 9, with an associated small right-sided pleural effusion, possible traumatic hemothorax. No appreciable pneumothoraces Head trauma, sustaining left eyebrow laceration Acute kidney injury History of diabetes mellitus History of hyperlipidemia History of hypertension. History of coronary artery disease with previous PCI/stenting History of paroxysmal atrial fibrillation, chronically anticoagulated on Xarelto Indeterminate pancreas head and tail lesions, possible representing cyst per CT report. Can be further evaluated in an outpatient setting by his primary care physician Plan: The patient was seen and evaluated Chest x-ray, labs and medications reviewed No pneumothorax Epidural catheter in place for pain management Encouraged the increased use of the incentive spirometer Increase his activity as tolerated I have personally seen and examined the patient, performed the documentation and the assessment and plan as written. Number of minutes spent on the visit: 10.
[2024-05-09 16:59] LABS: Glucose,Whole Blood 147 mg/dL (70-110)
[2024-05-09 20:17] LABS: Glucose,Whole Blood 191 mg/dL (70-110)
--- NOTE | 2024-05-09 21:54 | P.PN ---
Subjective Progress Note Date: 05/09/24 78-year-old man presented emergency department with complaints of having a mechanical fall. He has a past medical history significant for diabetes mellitus, hyperlipidemia, hypertension, CAD with previous PCI/LAD stenting, and atrial fibrillation anticoagulated on Xarelto. Patient was on a ladder when he lost his balance and fell on his right side. On presentation had a laceration to the left eyebrow which the patient reports was possibly caused by the ladder falling and striking his head. He reported to the emergency department that he had pain in his head and ribs, however no neck, back or abdominal pain. He denied any loss of consciousness. Patient's blood pressure 151/69, heart rate of 52, respiratory rate of 18 while having oxygen saturation 92% on room air. He takes Xarelto at home which has since been discontinued. Pulmonology has been consulted and seen the patient, reporting that he is show no signs of respiratory distress. He has been given incentive spirometer and has been using it consistently. We have been consulted to continue medical management of this patient. Initial lab work done in the ER showed WBCs 7.0, Hgb 12.1, Hct 37.8, Mcv 103.9, PT 15.1, INR 1.5, sodium 135, BUN 27, creatinine 1.31, glucose 234, AST 171, ALT 165, alkaline phosphatase 130 EKG done in the ER showed heart rate of 60, no ST segment elevation or depression seen, no T-wave inversions seen. Chest x-ray done in the ER showed low lung volumes with generalized hazy appearance which could represent atelectasis versus pulmonary edema which should be correlated with a serum BNP (which has been ordered) Pelvis x-ray done in ED showed no acute osseous pathology CT chest/abdomen/pelvis showed acute rib fractures with mild displacement of ribs 3 through 9 with suspected hemothorax versus effusion peripherally, spine appears to be intact for fracture, intermediate pancreatic head and tail process lesions possibly representing cyst (further workup recommended with MRCP with IV contrast), cardiomegaly with moderate to severe coronary artery atherosclerosis, moderate aortic valve calcifications CT head/cervical spine done showed no acute intracranial process, no evidence of cervical spine fracture, moderate multilevel degenerative disc disease 05/06 - Patient seen at bedside. Currently states he is feeling well, with discomfort due to his ribs. Pain has been controlled through pain management stating that the pain is alleviated by medications (MS 4 mg IVP every 4 hours, Ashton 5/325 mg every 6 hours, Robaxin, Tylenol 650 mg every 6 hours). Per pain management's recommendation, Ashton will be discontinued and replaced with oxycodone 5 mg every 4 hours as needed. Patient states he continues to have discomfort on his right side, however has been trying to move more and is highly motivated to get moving. He he continues to use his incentive spirometer. Added Protonix 40 mg daily for additional GI prophylaxis. Patient said he was to be considered for epidural injections due to the severe pain. Will continue to follow and monitor as needed. 05/07 - Patient seen at bedside today. Has continued pain and discomfort. He has been followed by pulmonology, pain management team, as well as orthopedic surgery. Epidural being considered, pain is being controlled by the pain management team with morphine IV push as needed as well as lidocaine patches applied daily. Continued use of incentive spirometry has been continually recommended, the patient should ambulate as he tolerates. Repeat chest x-ray done this morning to further evaluate for potential hemothorax from chest wall trauma. Physical therapy and Occupational Therapy both been consulted, hoping to have them see the patient today. Orthopedic surgery still considering having the patient receive an epidural for his increasing discomfort. Overnight patient's blood pressure was 101/61, heart rate of 71, respiratory rate of 17 with an oxygen saturation of 90% on room air. Patient still mentions that he has not had a bowel movement for a few days, on top of the nightly senna and the MiraLAX as needed 20 g of p.o. twice daily of lactulose has been added in an effort to get the patient's bowels moving. Bowel sounds are heard in all 4 quadrants, additionally patient has been moved into the chair and will work with occupational therapy and physical therapy which should help the bowels move. 05/08 - Patient seen at beside today. He continues to have discomfort despite additional medications added to help control the pain. Patient received an epidural of 250 mg ropivacaine and 5 mg hydromorphone yesterday in the afternoon, continues to have 4 mg of morphine, 4% lidocaine patch, Tylenol, Perc ocet available to him as needed however he has reported continued pain with those medications. Per surgery's recommendations, patient underwent his epidural as a last ditch effort to control the patient's pain however they are stating that if this does not work it is possible he will need to be transferred to a facility that does rib plating as a last ditch effort. Per pulmonology's recommendation, the patient is saturating in the mid 90s on room air, however needs increased encouragement regarding the use of an incentive spirometry with coughing and deep breathing exercises. Chest x-ray completed yesterday showed increased density reflecting atelectasis or contusive change as well as multiple right-sided rib fractures without evidence of pneumothorax. Patient is noted to have increasing tremors of his hands, his states that this is nothing new however more pronounced today she is unconcerned as it is not too different from the normal. Additionally the patient has still not had a bowel movement, however continues to have good bowel sounds. MiraLAX, senna, lactulose all charla ilable in the effort to avoid constipation in this patient. Will continue to work with physical therapy as tolerated. 05/09/2024 Patient is evaluated in follow up resting in bed has family at the bedside. He received epidural infusion yesterday he is still complaining of 8/10 pain and not tolerating activity well. Family with concerns about his activity and continued pain. Discussed that orthopedics had mentioned possible transfer for tertiary care for rib plating. Family and patient seem interested with this. Spoke with RN who states that surgery to follow up with patient about this later this afternoon. This will be left up to surgery for now and await the outcome of their conversation with family. Pulmonary recommending to continue with current plan of care. PT/OT consultation in place. Patient is on bowel regimen while using narcotics for pain management. Chest xray was repeated this morning which reveals fractures of the right lateral third through ninth ribs, trace right pleural effusion, possible mild pulmonary vascular congestion but overall improved aeration from 05/07/2024. His blood work today reveals white blood cell count of 11.3, hgb 11.5, MCV 106. Sodium level down to 130, potassium 5.2, BUN 43, creatinine 1.38. Blood glucose 191. Patient remains afebrile, heart rate 63, blood pressure 142/69, patient is 90% on room air at this time. He has been wearing 3L of oxygen via nasal cannula with saturations of 97%. REVIEW OF SYSTEMS: CONSTITUTIONAL: No fever, no malaise, no fatigue. HEENT: No recent visual problems or hearing problems. Denied any sore throat. CARDIOVASCULAR: No chest pain, orthopnea, PND, no palpitations, no syncope. PULMONARY: No shortness of breath, no cough, no hemoptysis. GASTROINTESTINAL: No diarrhea, no nausea, no vomiting, no abdominal pain. NEUROLOGICAL: No headaches, no weakness, no numbness. PHYSICAL EXAMINATION: GENERAL: The patient is alert and oriented x3, not in any acute distress. Well developed, well nourished. Discomfort noted due to pain from his ribs. HEENT: Pupils are round and equally reacting to light. EOMI. No scleral icterus. No conjunctival pallor. Normocephalic, atraumatic. No pharyngeal erythema. No thyromegaly. Laceration of the left eyebrow. CARDIOVASCULAR: S1 and S2 present. No murmurs, rubs, or gallops. PULMONARY: Chest is clear to auscultation, no wheezing or crackles. ABDOMEN: Soft, nontender, nondistended, normoactive bowel sounds. No palpable organomegaly. Mild tenderness of the right upper abdomen. MUSCULOSKELETAL: No joint swelling or deformity. Chest wall tenderness on the right side. EXTREMITIES: No cyanosis, clubbing, or pedal edema. NEUROLOGICAL: Gross neurological examination did not reveal any focal deficits. SKIN: No rashes. Open scrape on his right elbow and his right knee, both cared for and covered with bandages. Assessment and plan # Mildly displaced rib fractures of ribs 3 through 9 secondary to mechanical fall CT chest/abdomen/pelvis showed acute rib fractures with mild displacement of ribs 3 through 9 Patient had mechanical fall from a ladder Patient has had lidocaine patches placed Patient has Ashton 5325 to control his pain; patient states his pain is well- controlled at this time; has since been discontinued Patient has morphine 2 mg and/or 4 mg every 4 hours as needed and Percocet 5325 every 4 hours as needed available to control the pain Patient received epidural of 250 mg ropivacaine and 5 mg hydromorphone -Continues to report 8/10 pain. # Small right-sided pleural effusion, possible traumatic hemothorax secondary to mechanical fall CT chest/abdomen/pelvis showed that with the rib fractures and mild displacement of ribs 3 through 9 there is suspected hemothorax versus possible pleural effusion Patient is currently on room air, breathing comfortably while saturating in the low to mid 90s Repeat x-ray this morning (05/07) to continue to monitor and evaluate Repeat x-ray morning of 05/08 showed increased perihilar density may reflect atelectasis or contusive change. Multiple right-sided rib fractures. # Laceration to left eyebrow secondary to head trauma as a result of mechanical fall Patient a laceration of his left eyebrow noted on presentation to the emergency department Laceration was repaired in the emergency department, was reported as 3 cm # Abrasions on right elbow, right knee and right heel secondary to fall Controlled with bandages Wound care consulted to help monitor and care for these wounds -Hypervolemic hyponatremia with evidence of mild vascular congestion patient zuleyka l be given a one time dose of IV lasix 20 mg and will repeat blood work in the AM. No documented history of heart failure and there is no echocardiogram available for review. We will order an echocardiogram and repeat the labs in the AM. Mention of possible need for rib plating at tertiary care center by surgery group. Patient has received his epidural and still reporting 8/10 pain today. Discussed this in follow up with family they are considering this as an option. Pulmonary recommending to continue with current plan of care for now. Surgical services who are admitting for this patient per nurse are to be following up with patient and this afternoon regarding further discussion/need of transfer to tertiary care center. For now continue with current pain regimen, bowel regimen. Encourage incentive spirometer 10 x an hour while awake. Repeat blood work in the AM. GI prophylaxis: Protonix 40 mg daily DVT prophylaxis: Currently on hold The impression and plan of care has been dictated by Carol Ann Ramachandran Nurse Practitioner as directed. Dr. Whitley MD I have performed a history and physical examination and medical decision making of this patient, discussed the same with the dictator, and agree with the dictators assessment and plan as written, documented as a scribe. Based on total visit time, I have performed more than 50% of this visit. Objective - Vital Signs Vital signs: Vital Signs Temp 97.5 F L 05/09/24 14:00 Pulse 63 05/09/24 14:00 Resp 18 05/09/24 14:00 BP 142/69 05/09/24 14:00 Pulse Ox 90 L 05/09/24 14:00 FiO2 Intake & Output 05/09/24 05/09/24 05/10/24 06:59 18:59 06:59 Weight 88.5 kg Other: Voiding Method Toilet # Voids 3 - Labs CBC & Chem 7: 05/09/24 10:17 05/09/24 10:17 Labs: Abnormal Lab Results - Last 24 Hours (Table) 05/09/24 05/09/24 05/09/24 Range/Units 06:03 10:17 10:17 WBC 11.3 H (3.8-10.6) k/uL RBC 3.38 L (4.30-5.90) m/uL Hgb 11.5 L (13.0-17.5) gm/dL Hct 36.1 L (39.0-53.0) % MCV 106.8 H (80.0-100.0) fL Neutrophils # 8.7 H (1.3-7.7) k/uL Monocytes # 1.1 H (0-1.0) k/uL Sodium 130 L (137-145) mmol/L Potassium 5.2 H (3.5-5.1) mmol/L Carbon Dioxide 20 L (22-30) mmol/L BUN 43 H (9-20) mg/dL Creatinine 1.38 H (0.66-1.25) mg/dL Glucose 324 H (74-99) mg/dL POC Glucose (mg/dL) 301 H (70-110) mg/dL 05/09/24 05/09/24 05/09/24 Range/Units 11:44 16:58 20:16 WBC (3.8-10.6) k/uL RBC (4.30-5.90) m/uL Hgb (13.0-17.5) gm/dL Hct (39.0-53.0) % MCV (80.0-100.0) fL Neutrophils # (1.3-7.7) k/uL Monocytes # (0-1.0) k/uL Sodium (137-145) mmol/L Potassium (3.5-5.1) mmol/L Carbon Dioxide (22-30) mmol/L BUN (9-20) mg/dL Creatinine (0.66-1.25) mg/dL Glucose (74-99) mg/dL POC Glucose (mg/dL) 255 H 147 H 191 H (70-110) mg/dL Assessment and Plan Time with Patient: Less than 30
[2024-05-09] MEDS: FUROSEMIDE 10 MG/ML 2 ML VIAL IV STA (22:16)
[2024-05-10 06:24] LABS: Glucose,Whole Blood 202 mg/dL (70-110)
--- NOTE | 2024-05-10 07:51 | P.PN ---
Progress Note - Text Progress Note Date: 05/10/24 GRAEME. Patient is in no acute distress VSS General-NAD CVS-RRR Lungs-NLB Abdomen-soft, NTND 78-year-old male with right-sided rib fractures Patient being transferred to [facility] at request of Family. Pain Control Pulmonary Toilet -OOB -PT/OT Camilo Dorman [facility] [phone]
[2024-05-10 08:43] LABS: Basophils # (A) 0.02 X 10*3/uL (0.00-0.10); Basophils % (A) 0.2 %; Eosinophils # (A) 0.41 X 10*3/uL (0.04-0.35); Eosinophils % (A) 4.3 %; HCT 32.3 % (39.6-50.0); HGB 10.7 g/dL (13.0-17.0); Lymphocytes # (A) 0.99 X 10*3/uL (0.90-5.00); Lymphocytes % (A) 10.4 %; MCH 33.9 pg (27.0-32.0); MCHC 33.1 g/dL (32.0-37.0); MCV 102.2 FL (80.0-97.0); Mean Platelet Volume 10.1 FL (9.5-12.2); Monocytes # (A) 1.38 X 10*3/uL (0.20-1.00); Monocytes % (A) 14.5 %; NRBC Per 100 WBC 0 X 10*3/uL (0.00-0.01); Neutrophils # (A) 6.64 X 10*3/uL (1.80-7.70); Neutrophils % (A) 69.8 %; Platelet Count 211 X 10*3/uL (140-440); RBC 3.16 X 10*6/uL (4.40-5.60); RDW 12.5 % (11.5-14.5); WBC 9.52 X 10*3/uL (4.50-10.00)
[2024-05-10 08:59] LABS: BUN/Creat Ratio 28.73 Ratio (12.00-20.00); Blood Urea Nitrogen 31.6 mg/dL (9.0-27.0); Carbon Dioxide 24.3 mmol/L (21.6-31.8); Chloride 99 mmol/L (96-109); Glucose 194 mg/dL (70-110); Magnesium 1.5 mg/dL (1.5-2.4); Sodium 133 mmol/L (135-145)
--- NOTE | 2024-05-10 09:16 | P.PN ---
Progress Note - Text Progress Note Date: 05/10/24 (0752) Anesthesia Epidural day #3 Status post fall Patient seen and examined. Doing well without complaint. VAS less than 4. No nausea vomiting or pruritus. Ropivacaine0.1% with Dilaudid 20 mcg/mL at 3 cc an hour. Objective: Vital signs reviewed Lungs: Good chest excursion Abdomen: Appears nondistended Other: Epidural Site Intact without induration. Dressing intact Neuro: No apparent motor block. Sensory within normal limits. Assessment: Status post fall epidural day #3 Plan: Discontinue catheter. Heparin subcu may be resumed immediately. Xarelto may be resumed in 6 hours.
[2024-05-10 11:15] LABS: Glucose,Whole Blood 210 mg/dL (70-110)
--- NOTE | 2024-05-10 13:08 | P.PN ---
Subjective Progress Note Date: 05/10/24 Patient is a 78-year-old man who presented emergency department with complaints of having a mechanical fall. He has a past medical history significant for diabetes mellitus, hyperlipidemia, hypertension, CAD with previous PCI/LAD stenting, and atrial fibrillation anticoagulated on Xarelto. Patient was on a ladder when he lost his balance and fell on his right side. On presentation had a laceration to the left eyebrow which the patient reports was possibly caused by the ladder falling and striking his head. He reported to the emergency department that he had pain in his head and ribs, however no neck, back or abdominal pain. He denied any loss of consciousness. Patient's blood pressure 151/69, heart rate of 52, respiratory rate of 18 while having oxygen saturation 92% on room air. He takes Xarelto at home which has since been discontinued. Pulmonology has been consulted and seen the patient, reporting that he is show no signs of respiratory distress. He has been given incentive spirometer and has been using it consistently. We have been consulted to continue medical management of this patient. Initial lab work done in the ER showed WBCs 7.0, Hgb 12.1, Hct 37.8, Mcv 103.9, PT 15.1, INR 1.5, sodium 135, BUN 27, creatinine 1.31, glucose 234, AST 171, ALT 165, alkaline phosphatase 130 EKG done in the ER showed heart rate of 60, no ST segment elevation or depression seen, no T-wave inversions seen. Chest x-ray done in the ER showed low lung volumes with generalized hazy appear ance which could represent atelectasis versus pulmonary edema which should be correlated with a serum BNP (which has been ordered) Pelvis x-ray done in ED showed no acute osseous pathology CT chest/abdomen/pelvis showed acute rib fractures with mild displacement of ribs 3 through 9 with suspected hemothorax versus effusion peripherally, spine appears to be intact for fracture, intermediate pancreatic head and tail process lesions possibly representing cyst (further workup recommended with MRCP with IV contrast), cardiomegaly with moderate to severe coronary artery atherosclerosis, moderate aortic valve calcifications CT head/cervical spine done showed no acute intracranial process, no evidence of cervical spine fracture, moderate multilevel degenerative disc disease 05/06. Patient seen at bedside. Currently states he is feeling well, with discomfort due to his ribs. Pain has been controlled through pain management stating that the pain is alleviated by medications (MS 4 mg IVP every 4 hours, Lancaster 5/325 mg every 6 hours, Robaxin, Tylenol 650 mg every 6 hours). Per pain management's recommendation, Lancaster will be discontinued and replaced with oxycodone 5 mg every 4 hours as needed. Patient states he continues to have discomfort on his right side, however has been trying to move more and is highly motivated to get moving. He he continues to use his incentive spirometer. A dded Protonix 40 mg daily for additional GI prophylaxis. Patient said he was to be considered for epidural injections due to the severe pain. Will continue to follow and monitor as needed. 05/07. Patient seen at bedside today. Has continued pain and discomfort. He has been followed by pulmonology, pain management team, as well as orthopedic surgery. Epidural being considered, pain is being controlled by the pain management team with morphine IV push as needed as well as lidocaine patches applied daily. Continued use of incentive spirometry has been continually recommended, the patient should ambulate as he tolerates. Repeat chest x-ray done this morning to further evaluate for potential hemothorax from chest wall trauma. Physical therapy and Occupational Therapy both been consulted, hoping to have them see the patient today. Orthopedic surgery still considering having the patient receive an epidural for his increasing discomfort. Overnight patient's blood pressure was 101/61, heart rate of 71, respiratory rate of 17 with an oxygen saturation of 90% on room air. Patient still mentions that he has not had a bowel movement for a few days, on top of the nightly senna and the MiraLAX as needed 20 g of p.o. twice daily of lactulose has been added in an effort to get the patient's bowels moving. Bowel sounds are heard in all 4 quadrants, additionally patient has been moved into the chair and will work with occupational therapy and physical therapy which should help the bowels move. 05/08. Patient seen at beside today. He continues to have discomfort despite additional medications added to help control the pain. Patient received an epidural of 250 mg ropivacaine and 5 mg hydromorphone yesterday in the afternoon, continues to have 4 mg of morphine, 4% lidocaine patch, Tylenol, Percocet available to him as needed however he has reported continued pain with those medications. Per surgery's recommendations, patient underwent his epidural as a last ditch effort to control the patient's pain however they are stating that if this does not work it is possible he will need to be transferred to a facility that does rib plating as a last ditch effort. Per pulmonology's recommendation, the patient is saturating in the mid 90s on room air, however needs increased encouragement regarding the use of an incentive spirometry with coughing and deep breathing exercises. Chest x-ray completed yesterday showed increased density reflecting atelectasis or contusive change as well as multiple right-sided rib fractures without evidence of pneumothorax. Patient is noted to have increasing tremors of his hands, his states that this is nothing new however more pronounced today she is unconcerned as it is not too different from the normal. Additionally the patient has still not had a bowel movement, however continues to have good bowel sounds. MiraLAX, senna, lactulose all available in the effort to avoid constipation in this patient. Will continue to work with physical therapy as tolerated. 05/09. Patient is evaluated in follow up resting in bed has family at the bedside. He received epidural infusion yesterday he is still complaining of 8/10 pain and not tolerating activity well. Family with concerns about his activity and continued pain. Discussed that orthopedics had mentioned possible transfer for tertiary care for rib plating. Family and patient seem interested with this. Spoke with RN who states that surgery to follow up with patient about this later this afternoon. This will be left up to surgery for now and await the outcome of their conversation with family. Pulmonary recommending to continue with current plan of care. PT/OT consultation in place. Patient is on bowel regimen while using narcotics for pain management. Chest xray was repeated this morning which reveals fractures of the right lateral third through ninth ribs, trace right pleural effusion, possible mild pulmonary vascular congestion but overall improved aeration from 05/07/2024. His blood work today reveals white blood cell count of 11.3, hgb 11.5, MCV 106. Sodium level down to 130, potassium 5.2, BUN 43, creatinine 1.38. Blood glucose 191. Patient remains afebrile, heart rate 63, blood pressure 142/69, patient is 90% on room air at this time. He has been wearing 3L of oxygen via nasal cannula with saturations of 97%. 05/10. Patient seen at bedside today. He is epidural day 3. States that the pain is a 7/10. He is being transferred to [facility] later today for potential rib plating per family. WBCs 9.52, hemoglobin 10.7, sodium 133, potassium 5, creatinine 1.1. Per anesthesia Xarelto can be resumed 6 hours after epidural is shut off. ROS reviewed. Pertinent positives and negatives discussed above, a complete review of systems was performed and all the other systems were negative. PHYSICAL EXAMINATION: GENERAL: The patient is alert and oriented x3, not in any acute distress. Well developed, well nourished. Discomfort noted due to pain from his ribs. HEENT: Pupils are round and equally reacting to light. EOMI. No scleral icterus. No conjunctival pallor. Normocephalic, atraumatic. No pharyngeal erythema. No thyromegaly. Laceration of the left eyebrow. CARDIOVASCULAR: S1 and S2 present. No murmurs, rubs, or gallops. PULMONARY: Chest is clear to auscultation, no wheezing or crackles. ABDOMEN: Soft, nontender, nondistended, normoactive bowel sounds. No palpable organomegaly. Mild tenderness of the right upper abdomen. MUSCULOSKELETAL: No joint swelling or deformity. Chest wall tenderness on the right side. EXTREMITIES: No cyanosis, clubbing, or pedal edema. NEUROLOGICAL: Gross neurological examination did not reveal any focal deficits. SKIN: No rashes. Open scrape on his right elbow and his right knee, both cared for and covered with bandages. Assessment and plan # Mildly displaced rib fractures of ribs 3 through 9 secondary to mechanical fall CT chest/abdomen/pelvis showed acute rib fractures with mild displacement of ribs 3 through 9 Patient had mechanical fall from a ladder Patient has had lidocaine patches placed Patient has Lancaster 5325 to control his pain; patient states his pain is well- controlled at this time; has since been discontinued Patient has morphine 2 mg and/or 4 mg every 4 hours as needed and Percocet 5325 every 4 hours as needed available to control the pain Patient received epidural of 250 mg ropivacaine and 5 mg hydromorphone - will be removed later today prior to transfer Continues to report 7/10 pain Will transfer to [facility] later today for potential rib plating per family # Small right-sided pleural effusion, possible traumatic hemothorax secondary to mechanical fall CT chest/abdomen/pelvis showed that with the rib fractures and mild displacement of ribs 3 through 9 there is suspected hemothorax versus possible pleural effusion Patient is currently on room air, breathing comfortably while saturating in the low to mid 90s Repeat x-ray morning of 05/08 showed increased perihilar density may reflect atelectasis or contusive change. Multiple right-sided rib fractures Repeat x-ray 05/09 showed trace right pleural effusion, mild pulmonary vascular congestion, overall aeration improved compared to 05/07 Encourage incentive spirometer 10 x an hour while awake. # Laceration to left eyebrow secondary to head trauma as a result of mechanical fall Patient a laceration of his left eyebrow noted on presentation to the emergency department Laceration was repaired in the emergency department, was reported as 3 cm # Abrasions on right elbow, right knee and right heel secondary to fall Controlled with bandages Wound care consulted to help monitor and care for these wounds # Hypervolemic hyponatremia with evidence of mild vascular congestion Patient given a one time dose of IV lasix 20 mg and will repeat blood work in the AM on 05/10 No documented history of heart failure and there is no echocardiogram available for review. We will order an echocardiogram and repeat the labs in the AM. # Opioid-induced constipation Continue bowel regimen GI prophylaxis: Protonix 40 mg daily DVT prophylaxis: Currently on hold Objective - Vital Signs Vital signs: Vital Signs Temp 97.8 F 05/10/24 02:00 Pulse 69 05/10/24 02:00 Resp 15 05/09/24 20:00 BP 120/68 05/09/24 20:00 Pulse Ox 97 05/10/24 02:00 FiO2 Intake & Output 05/09/24 05/10/24 05/10/24 18:59 06:59 18:59 Weight 80.4 kg Other: Voiding Method Toilet # Voids 3 3 - Labs CBC & Chem 7: 05/10/24 05:05 05/10/24 05:05 Labs: Abnormal Lab Results - Last 24 Hours (Table) 05/09/24 05/09/24 05/09/24 Range/Units 10:17 10:17 11:44 WBC 11.3 H (3.8-10.6) k/uL RBC 3.38 L (4.30-5.90) m/uL Hgb 11.5 L (13.0-17.5) gm/dL Hct 36.1 L (39.0-53.0) % MCV 106.8 H (80.0-100.0) fL Neutrophils # 8.7 H (1.3-7.7) k/uL Monocytes # 1.1 H (0-1.0) k/uL Sodium 130 L (137-145) mmol/L Potassium 5.2 H (3.5-5.1) mmol/L Carbon Dioxide 20 L (22-30) mmol/L BUN 43 H (9-20) mg/dL Creatinine 1.38 H (0.66-1.25) mg/dL Glucose 324 H (74-99) mg/dL POC Glucose (mg/dL) 255 H (70-110) mg/dL 05/09/24 05/09/24 05/10/24 Range/Units 16:58 20:16 06:23 WBC (3.8-10.6) k/uL RBC (4.30-5.90) m/uL Hgb (13.0-17.5) gm/dL Hct (39.0-53.0) % MCV (80.0-100.0) fL Neutrophils # (1.3-7.7) k/uL Monocytes # (0-1.0) k/uL Sodium (137-145) mmol/L Potassium (3.5-5.1) mmol/L Carbon Dioxide (22-30) mmol/L BUN (9-20) mg/dL Creatinine (0.66-1.25) mg/dL Glucose (74-99) mg/dL POC Glucose (mg/dL) 147 H 191 H 202 H (70-110) mg/dL
--- NOTE | 2024-05-10 13:20 | P.PN ---
Subjective Progress Note Date: 05/10/24 Patient is a 78-year-old white male with past medical history significant for diabetes mellitus, hyperlipidemia, hypertension, CAD with previous PCI/stenting, and atrial fibrillation anticoagulated on Xarelto. Patient presented to the ED yesterday after falling approximately 2 feet from ladder. He was changing a light fixture. Does report head trauma. There is a laceration to left eyebrow. Does take Xarelto on outpatient basis. CT of the brain and C-spine does not show any intracranial hemorrhage or mass effect. No C-spine fracture or subluxation. Also, reports some right-sided chest pain. CT of chest, abdomen, pelvis demonstrated acute right-sided rib fractures with mild displacement of r ibs 3 through 9, and small right-sided effusion, possible hemothorax. No appreciable pneumothoraces. The fluid collection is small, doubt the patient would benefit from thoracotomy tube. Cardiothoracic consult was also placed. Patient is currently in the emergency department, room 2. He is on room air. SpO2 is 93%. No signs of respiratory distress. We will need to get him an incentive spirometer. Continues to have right-sided rib pain. No crepitus or subcutaneous emphysema. There is a lidocaine patch on. Patient also receiving as needed Wesley's. Reports that his pain is fairly well-managed at this time. Patient was today on 05/06/2024, on room air with O2 sats of 96%, does not seem to be in any distress, patient seems to be relatively controlled, being considered for epidural injections for his severe pain. In the meantime the patient is receiving Wesley. And morphine IV push as needed. Patient is being followed by pain team for his pain and he is also on lidocaine patch applied daily. Labs WBC count is 8.6 hemoglobin 11.5. Chest x-ray from admission was reviewed, follow-up chest x-ray to be done in a.m. was ordered. The patient is seen today May 07, 2024 in follow-up on the regular medical floor. He is currently resting fairly comfortably in bed. Awake and alert in no acute distress. He is maintaining O2 saturations in the 90s on room air. He needs increased encouragement regarding the use of the incentive spirometer and cough and deep breathing exercises. He is working with physical therapy. Glucose 290. X-ray reveals perihilar increased density reflecting atelectasis or contusive change. Multiple right-sided rib fractures redemonstrated. Small right effusion. No evidence of pneumothorax. Lido Cane patch in place. Plans for epidural injection for pain control. Xarelto is on hold. The patient is seen today May 08, 2024 in follow-up on the regular medical floor. He is awake and alert in no acute distress. He did undergo an epicardial catheter placement for pain management that seems to be helping significantly. He is doing better on his incentive spirometer. He is a bit more mobile. Less discomfort with inhalation. Glucose 209. Lidocaine patch remains in place. The patient is seen today May 09, 2024 in follow-up on the regular medical floor. He is awake and alert in no acute distress. He is currently sitting up in a chair at the bedside. Doing quite a bit better. Epidural catheter in place. Lidocaine patch in place. Follow-up chest x-ray again demonstrates fractures of right lateral 3rd through 9th ribs. Trace right pleural effusion. Improved aeration. He is maintaining good O2 saturations in the 90s on room air. He is afebrile. Hemodynamically stable. Working well with the incentive spirometer. White count 11.3. Hemoglobin 11.5. Platelets 256. Sodium 130. Potassium 5.2. Bicarb 20. BUN 43. Creatinine 1.38. Glucose 255. The patient is seen today May 10, 2024 in follow-up on the regular medical floor. He is resting fairly comfortably in bed. Awake and alert in no acute distress. States he is feeling better today compared to yesterday. He is working well with the incentive spirometer. He is currently on oxygen at 2 L/min per nasal cannula. Epidural catheter in place for pain control. Lidocaine patch in place. White count 9.5. Hemoglobin 10.7. Platelets 211. Sodium 133. Potassium 5.0. Bicarb 24. BUN 32. Creatinine 1.1. Glucose 194. Objective - Vital Signs Vital signs: Vital Signs Temp 98.8 F 05/10/24 08:00 Pulse 71 05/10/24 09:50 Resp 18 05/10/24 09:50 BP 135/68 05/10/24 08:00 Pulse Ox 97 05/10/24 08:14 FiO2 Intake & Output 05/09/24 05/10/24 05/10/24 18:59 06:59 18:59 Intake Total 118 Balance 118 Weight 80.4 kg Intake: Oral 118 Other: Voiding Method Toilet Toilet Urinal # Voids 3 3 1 - Exam GENERAL EXAM: Alert, 78-year-old male, more comfortable today, in no apparent distress. On 3 L nasal cannula HEAD: Normocephalic and left frontal eyebrow trauma/e cchymosis/laceration/periorbital swelling EYES: Normal reaction of pupils, equal size. NOSE: Clear with pink turbinates. THROAT: No erythema or exudates. NECK: No masses, no JVD. CHEST: No chest wall deformity. No gross deformities or crepitus. No subcutaneous emphysema. LUNGS: Equal air entry with no crackles, wheeze, rhonchi or dullness. On room air. No conversational dyspnea or accessory muscle use.. CVS: S1 and S2 normal with no audible murmur, regular rhythm. No extra heart sounds ABDOMEN: No hepatosplenomegaly, active bowel sounds, no guarding or rigidity. SKIN: Right valentine abrasion. Right elbow skin tear. CENTRAL NERVOUS SYSTEM: No focal deficits, tone is normal in all 4 extremities. EXTREMITIES: There is no peripheral edema, clubbing, or cyanosis. Peripheral pulses are intact. - Labs CBC & Chem 7: 05/10/24 05:05 05/10/24 05:05 Labs: Abnormal Lab Results - Last 24 Hours (Table) 05/09/24 05/09/24 05/10/24 Range/Units 16:58 20:16 05:05 RBC (4.40-5.60) X 10*6/uL Hgb (13.0-17.0) g/dL Hct (39.6-50.0) % MCV (80.0-97.0) FL MCH (27.0-32.0) pg Immature Gran # (0.00-0.04) X 10*3/uL Monocytes # (0.20-1.00) X 10*3/uL Eosinophils # (0.04-0.35) X 10*3/uL Sodium 133 L (135-145) mmol/L BUN 31.6 H (9.0-27.0) mg/dL BUN/Creatinine Ratio 28.73 H (12.00-20.00) Ratio Glucose 194 H (70-110) mg/dL POC Glucose (mg/dL) 147 H 191 H (70-110) mg/dL 05/10/24 05/10/24 05/10/24 Range/Units 05:05 06:23 11:13 RBC 3.16 L (4.40-5.60) X 10*6/uL Hgb 10.7 L (13.0-17.0) g/dL Hct 32.3 L (39.6-50.0) % MCV 102.2 H (80.0-97.0) FL MCH 33.9 H (27.0-32.0) pg Immature Gran # 0.08 H (0.00-0.04) X 10*3/uL Monocytes # 1.38 H (0.20-1.00) X 10*3/uL Eosinophils # 0.41 H (0.04-0.35) X 10*3/uL Sodium (135-145) mmol/L BUN (9.0-27.0) mg/dL BUN/Creatinine Ratio (12.00-20.00) Ratio Glucose (70-110) mg/dL POC Glucose (mg/dL) 202 H 210 H (70-110) mg/dL Assessment and Plan Assessment: Fall from ladder, sustaining right-sided mildly displaced rib fractures 3 through 9, with an associated small right-sided pleural effusion, possible traumatic hemothorax. No appreciable pneumothoraces Head trauma, sustaining left eyebrow laceration Acute kidney injury History of diabetes mellitus History of hyperlipidemia History of hypertension. History of coronary artery disease with previous PCI/stenting History of paroxysmal atrial fibrillation, chronically anticoagulated on Xarelto Indeterminate pancreas head and tail lesions, possible representing cyst per CT report. Can be further evaluated in an outpatient setting by his primary care physician Plan: The patient was seen and evaluated Labs and medications reviewed Epidural catheter in place for pain management Encouraged the increased use of the incentive spirometer Increase his activity as tolerated Family requesting transfer to [facility] [place] for possible rib plating I have personally seen and examined the patient, performed the documentation and the assessment and plan as written. Number of minutes spent on the visit: 10.
[2024-05-10 15:26] VITALS: BP 122/58; PULSE 94; RESP 17; TEMP 98.4
[2024-05-10 16:52] LABS: Glucose,Whole Blood 178 mg/dL (70-110)
--- NOTE | 2024-05-11 09:57 | CA ---
Transthoracic Echo Report Name: Soy Velasco Age: 78 Gender: M : 1945 Exam Date: 05/10/2024 09:01 Exam Location: [place] [facility] Ht (in): 70 Wt (lb): 195 Ordering Physician: Carol Ann Ramachandran Attending/Referring Phys: Duarte JUNE [employer] Estimator Brittany River RDCS Procedure CPT: Indications: chf Cardiac Hx: Technical Quality: Very technically difficult study Contrast 1: Definity Total Dose (mL): 2 Contrast 2: Total Dose (mL): MEASUREMENTS (Male / Female) Normal Values 2D ECHO LV Diastolic Diameter PLAX 5.0 cm 4.2 - 5.9 / 3.9 - 5.3 cm LV Systolic Diameter PLAX 3.8 cm IVS Diastolic Thickness 1.0 cm 0.6 - 1.0 / 0.6 - 0.9 cm LVPW Diastolic Thickness 1.3 cm 0.6 - 1.0 / 0.6 - 0.9 cm LV Relative Wall Thickness 0.5 LVOT Diameter 2.1 cm LV Diastolic Volume MOD BP 175.3 cm??? 67 - 155 / 56 - 104 cm??? LV Systolic Volume MOD BP 72.6 cm??? 22 - 58 / 19 - 49 cm??? LV Ejection Fraction MOD BP 58.6 % >= 55 % LV Cardiac Index MOD BP 3216.3 cm???/min???m??? LV Diastolic Volume MOD 4C 167.9 cm??? LV Systolic Volume MOD 4C 69.4 cm??? LV Ejection Fraction MOD 4C 58.6 % LV Cardiac Index MOD 4C 3082.5 cm???/min???m??? LV Diastolic Length 4C 10.3 cm LV Systolic Length 4C 8.6 cm LV Diastolic Volume MOD 2C 170.2 cm??? LV Systolic Volume MOD 2C 73.4 cm??? LV Ejection Fraction MOD 2C 56.9 % LV Cardiac Index MOD 2C 3034.2 cm???/min???m??? LV Diastolic Length 2C 9.6 cm LV Systolic Length 2C 8.3 cm Ascending Aorta Diameter 3.7 cm DOPPLER AV Peak Velocity 315.1 cm/s AV Peak Gradient 39.7 mmHg AV Mean Velocity 234.7 cm/s AV Mean Gradient 24.0 mmHg AV Velocity Time Integral 66.7 cm LVOT Peak Velocity 100.0 cm/s LVOT Peak Gradient 4.0 mmHg LVOT Velocity Time Integral 20.5 cm LVOT Stroke Volume 69.2 cm??? LVOT Stroke Volume Index 33.5 ml/m??? LVOT Cardiac Index 2166.6 cm???/min???m??? AV Area Cont Eq vti 1.0 cm??? AV Area Cont Eq pk 1.1 cm??? MV Area PHT 3.9 cm??? Mitral E Point Velocity 56.4 cm/s Mitral A Point Velocity 77.7 cm/s Mitral E to A Ratio 0.7 MV Deceleration Time 192.8 ms PV Peak Velocity 87.5 cm/s PV Peak Gradient 3.1 mmHg FINDINGS Left Ventricle Left ventricular ejection fraction is estimated at 55-60 %. Mildly increased left ventricular diastolic volume. Moderately increased left ventricular systolic volume. No obvious regional wall motion abnormalities. Right Ventricle Right ventricle not well visualized. Unable to estimate the right ventricular systolic pressure. Right Atrium Right atrium not well visualized. Left Atrium Mildly increased left atrial area. Mitral Valve Structurally normal mitral valve. No mitral stenosis, regurgitation or prolapse. Aortic Valve Trileaflet aortic valve. Diffuse thickening of the aortic valve cusps with reduced excursion. [id number] aortic stenosis with a peak gradient of 41 mmHg and a mean gradient of 25 mmHg. May be underestimated due to inadequate image quality and poor doppler alignment. No aortic regurgitation. Tricuspid Valve Structurally normal tricuspid valve. No tricuspid stenosis, regurgitation or prolapse. Pulmonic Valve Pulmonic valve not well visualized. No pulmonic stenosis. Trace pulmonic regurgitation. Pericardium No pericardial effusion. Aorta Normal size aortic root and proximal ascending aorta. CONCLUSIONS Diagnosis: Congestive heart failure, aortic stenosis Technically difficult study with suboptimal acoustic windows but preserved systolic function Calcific aortic valve with at least moderate aortic stenosis The aortic valve is not well-seen and advanced imaging may be considered to evaluate degree of aortic stenosis Previewed by: Dr. Gio Gomez MD (Electronically Signed) Final Date: 11 May 2024 09:56
--- NOTE | 2024-05-26 16:39 | CDI ---
Documentation Clarification Form Date: 05/26/2024 04:23:07 PM From: Latha Rodrigues Phone: Admit Date: 05/04/2024 05:00:00 PM Patient Name: Soy Velasco Visit Number: [id number] Discharge Date: 05/10/2024 06:46:00 PM ATTENTION: The Clinical Documentation Specialists (CDI) and [facility] Coding Staff appreciate your assistance in clarifying documentation. Please respond to the clarification below the line at the bottom and electronically sign. The CDI & [facility] Coding staff will review the response and follow-up if needed. Please note: Queries are made part of the Legal Health Record. If you have any questions, please contact the author of this message via ITS. Doctor/Provider: Eric Bansal Your patient has an abnormal lab value: Glucose 234. Please clarify if there is an additional diagnosis and/or clinical significance related to this value. History/Risk Factors: 78yo M, Fall from ladder, w multi displacedrib fractures w small right-sidedpleural effusion,traumatic hemothorax,left eyebrow laceration, MICK, DMII, HLD, HTNHD, CAD, PAF Clinical indicators: Glucose 05/04 234 05/06 178- 259 05/07 178-290 05/08 202-451 05/09 200-324 05/10 147-324 Home Medications: sitaGLIPtin PHOS/metformin HCL 1 tab PO DAILY Treatment: 10mg Detemir (Levemir) Is there an additional diagnosis and/or clinical significance related to the above lab result/information? [ ] NIDDMII with hyperglycemia [ ] Hyperglycemia due to (please specify): [ ] No additional diagnosis/Not clinically significant [ ] Other, please specify [ X ] Unable to determine (Template Last Revised: September 2020) MTDD
== END 2024-05-10 18:46 | disposition short-term general hospital (02) | DRG 987 ==
LOC: EC 12:52 → 3SCARD 17:00 → 4SSUR 05-06 22:08
PROVIDERS: ADMIT Surgery; ATTEND Surgery
PROC: 0WQ2XZZ Repair Face, External Approach (ICD-10-PCS; principal; 2024-05-04)
PROC: 3E0R3BZ Introduction of Anesthetic Agent into Spinal Canal, Percutaneous Approach (ICD-10-PCS; 2024-05-07)
PROC: 00HU33Z Insertion of Infusion Device into Spinal Canal, Percutaneous Approach (ICD-10-PCS; 2024-05-07)
DX: S22.41XA Multiple fractures of ribs, right side, initial encounter for closed fracture (principal); S27.1XXA Traumatic hemothorax, initial encounter; K86.2 Cyst of pancreas; N17.9 Acute kidney failure, unspecified; F05 Delirium due to known physiological condition; E87.1 Hypo-osmolality and hyponatremia; J91.8 Pleural effusion in other conditions classified elsewhere; I11.9 Hypertensive heart disease without heart failure; E11.9 Type 2 diabetes mellitus without complications; I35.8 Other nonrheumatic aortic valve disorders; I48.0 Paroxysmal atrial fibrillation; G25.0 Essential tremor; S01.112A Laceration without foreign body of left eyelid and periocular area, initial encounter; S51.011A Laceration without foreign body of right elbow, initial encounter; E78.5 Hyperlipidemia, unspecified; S80.811A Abrasion, right lower leg, initial encounter; S05.12XA Contusion of eyeball and orbital tissues, left eye, initial encounter; E87.70 Fluid overload, unspecified; H91.93 Unspecified hearing loss, bilateral; I25.10 Atherosclerotic heart disease of native coronary artery without angina pectoris; M50.30 Other cervical disc degeneration, unspecified cervical region; K59.03 Drug induced constipation; T40.2X5A Adverse effect of other opioids, initial encounter; M10.9 Gout, unspecified; N40.0 Benign prostatic hyperplasia without lower urinary tract symptoms; W11.XXXA Fall on and from ladder, initial encounter; W22.8XXA Striking against or struck by other objects, initial encounter; Y92.009 Unspecified place in unspecified non-institutional (private) residence as the place of occurrence of the external cause; Z79.01 Long term (current) use of anticoagulants; Z79.84 Long term (current) use of oral hypoglycemic drugs; Z79.899 Other long term (current) drug therapy; Z79.82 Long term (current) use of aspirin; I25.2 Old myocardial infarction; Z95.5 Presence of coronary angioplasty implant and graft; Z97.4 Presence of external hearing-aid
CPT/HCPCS: 12013; 36415; 70450; 70486; 71045; 71260; 72125; 72170; 74177; 80048; 80053; 83605; 83735; 83880; 85025; 85610; 85730; 86850; 86900; 86901; 93005; 93306; 94760; 96374; 96375; 99291

== ENCOUNTER → 2025-01-11 | Outpatient (CLI) | payer MEDICARE ==
[2025-01-11 15:52] LABS: ALT 29 U/L (10-49); AST 26 U/L (14-35); Albumin 3.8 g/dL (3.8-4.9); Albumin/Globulin Ratio 1.73 Ratio (1.60-3.17); Alkaline Phosphatase 88 U/L (41-126); BUN/Creat Ratio 25.33 Ratio (12.00-20.00); Blood Urea Nitrogen 30.4 mg/dL (9.0-27.0); Calcium 9.3 mg/dL (8.7-10.3); Carbon Dioxide 21.5 mmol/L (21.6-31.8); Chloride 107 mmol/L (96-109); Chol/HDL Ratio 2.67 Ratio; Globulin 2.2 g/dL (1.6-3.3); Glucose 169 mg/dL (70-110); LDL Cholesterol,Calculated 54.5 mg/dL (0.0-131.0); Potassium 4.7 mmol/L (3.5-5.5); Sodium 140 mmol/L (135-145); Total Bilirubin 0.4 mg/dL (0.3-1.2); VLDL Calculation 13.06 mg/dL (5.00-40.00)
== END | disposition home or self-care (01) ==
LOC: LABWHC1 08:22
PROVIDERS: ATTEND Internal Medicine Endocrinology, Diabetes & Metabolism
DX: E11.65 Type 2 diabetes mellitus with hyperglycemia (principal)
CPT/HCPCS: 36415; 80053; 80061; 82043; 82570; 83036; 84443